=== PATIENT | female | born 1950 | race Caucasian/White ===

== ENCOUNTER 2018-05-14 15:33 | Inpatient (IN) | payer MEDICARE, MEDICAID ==
[~2018-05-14] VITALS: Ht 167.6 cm; Wt 99.3 kg
--- NOTE | 2018-05-14 15:56 | ED Dyspnea ---
General Stated Complaint: SOB Source of Information: Patient Exam Limitations: No Limitations (FARAZ BUSTILLO MD) History of Present Illness Date Seen by Provider: May 14, 2018 Time Seen by Provider: 15:40 Initial Comments The patient is a very pleasant 67-year-old female who presents for evaluation of shortness of breath. She states that she was diagnosed with a pneumonia in January 2018 and "never really got better". She does report a history of emphysema but denies being on home oxygen. Upon arrival her oxygen saturation on room air is in the mid 80s. She says that she has increasing pain with deep breaths. She reports that she has had a heart attack in the past but denies having any chest discomfort currently. She only has pain when breathing. She denies any wheezing, lower extremity edema, abdominal or back pain, nausea or vomiting, fevers or chills, dizziness recently. She is alert and oriented 4 and in moderate respiratory distress upon arrival. Severity: Moderate Modifying Factors: Improves With Activity Associated Symptoms: Cough (SUMIT SHARMA DO) Allergies and Home Medications Allergies Coded Allergies: Penicillins (Unverified Allergy, Unknown, 05/14/18) doxycycline (Unverified Allergy, Unknown, 05/14/18) levofloxacin (Unverified Allergy, Unknown, 05/14/18) tramadol (Unverified Allergy, Unknown, 05/14/18) Patient Home Medication List Home Medication List Reviewed: Yes (SUMIT SHARMA DO) Review of Systems Review of Systems Constitutional: no symptoms reported EENTM: no symptoms reported Respiratory: cough, dyspnea on exertion, short of breath Cardiovascular: no symptoms reported Gastrointestinal: no symptoms reported Genitourinary: no symptoms reported Musculoskeletal: no symptoms reported Skin: no symptoms reported Psychiatric/Neurological: No Symptoms Reported Endocrine: No Symptoms Reported Hematologic/Lymphatic: No Symptoms Reported (SUMIT SHARMA DO) All Other Systems Reviewed Negative Unless Noted: Yes (SUMIT SHARMA DO) Negative Unless Noted: Yes (FARAZ BUSTILLO MD) Past Lberxvk-Ujxvbo-Kjbqui Hx Patient Social History Recent Foreign Travel: No Contact w/Someone Who Travel: No (SUMIT SHARMA DO) Physical Exam Vital Signs Vital Signs - First Documented 05/14/18 15:41 Temp 99.0 Pulse 100 Resp 20 B/P (MAP) 150/99 (116) Pulse Ox 85 O2 Delivery Room Air O2 Flow Rate 2.00 (FARAZ BUSTILLO MD) Vital Signs Capillary Refill : (SUMIT SHARMA DO) Height, Weight, BMI Height: '" Weight: lbs. oz. kg; BMI Method: General Appearance: WD/WN, Moderate Distress HEENT: PERRL/EOMI, Pharynx Normal Neck: Full Range of Motion, Normal Inspection, Non Tender Respiratory: Chest Non Tender, Accessory Muscle Use, Respiratory Distress ( moderate), Rhonci (left base) Cardiovascular: Regular Rate, Rhythm, No Edema, No Gallop, No JVD Gastrointestinal: Normal Bowel Sounds, No Organomegaly, No Pulsatile Mass Extremity: Normal Capillary Refill, Normal Range of Motion, Non Tender Neurologic/Psychiatric: Alert, Oriented x3, No Motor/Sensory Deficits, Normal Mood/Affect Skin: Normal Color, Warm/Dry (SUMIT SHARMA DO) Gastrointestinal: Normal Bowel Sounds (FARAZ BUSTILLO MD) Focused Exam Lactate Level 05/14/18 16:00: Lactic Acid Level 1.76 (FARAZ BUSTILLO MD) Lactic Acid Level Laboratory Tests Test 05/14/18 16:00 Lactic Acid Level 1.76 MMOL/L (0.50-2.00) (FARAZ BUSTILLO MD) Progress/Results/Core Measures Results/Orders Lab Results Laboratory Tests Test 05/14/18 15:15 05/14/18 15:50 05/14/18 16:00 Range/Units D-Dimer 0.79 H 0.00-0.49 UG/ML Sodium Level 137 135-145 MMOL/L Potassium Level 4.6 3.6-5.0 MMOL/L Chloride Level 103 98-107 MMOL/L Carbon Dioxide Level 21 21-32 MMOL/L Anion Gap 13 5-14 MMOL/L Blood Urea Nitrogen 16 7-18 MG/DL Creatinine 0.79 0.60-1.30 MG/DL Estimat Glomerular Filtration Rate > 60 BUN/Creatinine Ratio 20 Glucose Level 123 H 70-105 MG/DL Calcium Level 9.8 8.5-10.1 MG/DL Corrected Calcium 9.7 8.5-10.1 MG/DL Magnesium Level 2.1 1.8-2.4 MG/DL Total Bilirubin 0.2 0.1-1.0 MG/DL Aspartate Amino Transf (AST/SGOT) 25 5-34 U/L Alanine Aminotransferase (ALT/SGPT) 12 0-55 U/L Alkaline Phosphatase 111 40-136 U/L Troponin T 8 <=10 NG/L B-Type Natriuretic Peptide 59.4 <100.0 PG/ML Total Protein 7.8 6.4-8.2 GM/DL Albumin 4.1 3.2-4.5 GM/DL White Blood Count 8.1 4.3-11.0 10^3/uL Red Blood Count 5.00 4.35-5.85 10^6/uL Hemoglobin 14.8 11.5-16.0 G/DL Hematocrit 44 35-52 % Mean Corpuscular Volume 88 80-99 FL Mean Corpuscular Hemoglobin 30 25-34 PG Mean Corpuscular Hemoglobin Concent 34 32-36 G/DL Red Cell Distribution Width 12.5 10.0-14.5 % Platelet Count 314 130-400 10^3/uL Mean Platelet Volume 9.4 7.4-10.4 FL Neutrophils (%) (Auto) 61 42-75 % Lymphocytes (%) (Auto) 24 12-44 % Monocytes (%) (Auto) 9 0-12 % Eosinophils (%) (Auto) 5 0-10 % Basophils (%) (Auto) 1 0-10 % Neutrophils # (Auto) 4.9 1.8-7.8 X 10^3 Lymphocytes # (Auto) 2.0 1.0-4.0 X 10^3 Monocytes # (Auto) 0.7 0.0-1.0 X 10^3 Eosinophils # (Auto) 0.4 H 0.0-0.3 10^3/uL Basophils # (Auto) 0.1 0.0-0.1 10^3/uL Lactic Acid Level 1.76 0.50-2.00 MMOL/L (FARAZ BUSTILLO MD) My Orders Orders - FARAZ BUSTILLO MD Chest 1 View Ap/Pa Only (05/14/18 18:57) Ct Angio Chest W (05/14/18 18:58) Ceftriaxone For Iv Use (Rocephin For I (05/14/18 19:30) Zithromax 500 Mg Iv (1x Order) (05/14/18 19:45) (FARAZ BUSTILLO MD) Medications Given in ED Current Medications Medications Dose Ordered Sig/Mahamed Route Start Time Stop Time Status Last Admin Dose Admin Albuterol/ Ipratropium 3 ml ONCE ONCE INH 05/14/18 16:30 05/14/18 16:32 DC 05/14/18 16:39 3 ML Methylprednisolone Sodium Succinate 125 mg ONCE ONCE IVP 05/14/18 16:30 05/14/18 16:32 DC 05/14/18 16:39 125 MG (FARAZ BUSTILLO MD) Vital Signs/I&O 05/14/18 05/14/18 15:41 15:41 Temp 99.0 Pulse 100 Resp 20 B/P (MAP) 150/99 (116) Pulse Ox 85 94 O2 Delivery Room Air Nasal Cannula O2 Flow Rate 2.00 (FARAZ BUSTILLO MD) Progress Progress Note : Progress Note @1800 - Pt care transferred from Dr. Sharma to Dr. Ajay Bustillo at this time. Awaiting troponin and CT angio chest to r/o PE. Pt stable. (SUMIT SHARMA DO) Initial ECG Impression Date: May 14, 2018 Initial ECG Impression Time: 15:48 Initial ECG Rate: 82 Initial ECG Rhythm: Normal Sinus Initial ECG Intervals: Normal Initial ECG Impression: Nonspecific Changes Comment Normal sinus rhythm, rate of 82, normal axis, no acute ischemic findings noted, S1Q3T3 strain pattern is noted, no STEMI, reviewed and interpreted by myself (SUMIT SHARMA DO) Transfer of Care Time: 18:00 Care transferred to: Dr. Faraz Bustillo at 6 p.m. (FARAZ BUSTILLO MD) Departure Impression Primary Impression: Pneumonia Additional Impression: COPD exacerbation Disposition: ADMITTED INPATIENT Condition: Stable Admissions Decision to Admit Reason: Admit from ER (General) (I spoke with Dr[facility] Baumann at [facility] who agreed to admit. Cultures were drawn antibiotics were started.) Decision to Admit/Date: May 14, 2018 Time/Decision to Admit Time: 19:38 (FARAZ BUSTILLO MD) Departure-Patient Inst. Referrals: AIDEN PATTERSON MD (PCP/Family) Primary Care Physician SUMIT SHARMA DO May 14, 2018 15:56 FARAZ BUSTILLO MD May 14, 2018 18:16
[2018-05-14 16:02] LABS: BASOPHILS % (AUTO) 1 % (0-10); EOSINOPHILS % (AUTO) 5 % (0-10); HEMATOCRIT 44 % (35-52); HEMOGLOBIN 14.8 G/DL (11.5-16.0); LYMPHOCYTES % (AUTO) 24 % (12-44); MEAN CORPUSCULAR HEMOGLOBIN 30 PG (25-34); MEAN CORPUSCULAR HGB CONC 34 G/DL (32-36); MEAN CORPUSCULAR VOLUME 88 FL (80-99); MEAN PLATELET VOLUME 9.4 FL (7.4-10.4); MONOCYTES % (AUTO) 9 % (0-12); NEUTROPHILS % (AUTO) 61 % (42-75); PLATELET COUNT 314 10^3/uL (130-400); RED CELL DISTRIBUTION WIDTH 12.5 % (10.0-14.5); WHITE BLOOD COUNT 8.1 10^3/uL (4.3-11.0)
[2018-05-14 16:03] LABS: BASOPHILS # (AUTO) 0.1 10^3/uL (0.0-0.1); EOSINOPHILS # (AUTO) 0.4 10^3/uL (0.0-0.3); MONOCYTES # (AUTO) 0.7 X 10^3 (0.0-1.0); NEUTROPHILS # (AUTO) 4.9 X 10^3 (1.8-7.8)
[2018-05-14] MEDS ORDERED: RT-ALBUTEROL/IPRATROPIUM 3 ML (DUONEB) VIAL INH ONE (16:30)
[2018-05-14] MEDS ORDERED: methylPREDNISolone 125 MG (Solu-MEDROL) VIAL IVP ONE (16:30)
[2018-05-14 16:34] LABS: CARBON DIOXIDE 21 MMOL/L (21-32); CHLORIDE 103 MMOL/L (98-107); POTASSIUM 4.6 MMOL/L (3.6-5.0); SODIUM 137 MMOL/L (135-145)
[2018-05-14 16:35] LABS: ALKALINE PHOSPHATASE 111 U/L (40-136); BILIRUBIN,TOTAL 0.2 MG/DL (0.1-1.0); BUN/CREATININE RATIO 20; CALCIUM 9.8 MG/DL (8.5-10.1); CREATININE SERUM 0.79 MG/DL (0.60-1.30); GFR ESTIMATED > 60; GLUCOSE 123 MG/DL (70-105); MAGNESIUM 2.1 MG/DL (1.8-2.4)
[2018-05-14 16:36] LABS: ALANINE AMINOTRANSFERASE 12 U/L (0-55); ALBUMIN 4.1 GM/DL (3.2-4.5); TOTAL PROTEIN 7.8 GM/DL (6.4-8.2)
--- NOTE | 2018-05-14 17:35 | NUR ---
Pt walked to restroom with portable O2 NC at 2L. When pt returned to , pt's O2 sat was 79%. Once pt was settled in bed, O2 sat returned to 98%.
--- NOTE | 2018-05-14 19:17 | Diagnostic Imaging Report ---
INDICATION: Shortness of air. COMPARISON: None. FINDINGS: Single frontal radiographic view of the chest was obtained and shows normal cardiac silhouette and pulmonary vasculature. Lungs show prominence of the interstitium with scattered areas of alveolar opacity within the left mid and lower and right lower lung stanford. No large effusion or pneumothorax is seen. Bony structures show no gross acute abnormalities. IMPRESSION: 1. Scattered interstitial and alveolar opacities concerning for edema or pneumonia. Clinical correlation and follow-up is recommended. Dictated by: Dictated on workstation # [id number]
--- NOTE | 2018-05-14 19:26 | Diagnostic Imaging Report ---
PROCEDURE: CT angiography of the chest with contrast. TECHNIQUE: Multiple contiguous axial images were obtained through the chest after uneventful bolus administration of intravenous contrast. 2D reconstructed CTA MIP acquisitions were also performed. INDICATION: Shortness of air. Elevated d-dimer. History of COPD. COMPARISON: None FINDINGS: Exam is nondiagnostic for evaluation of pulmonary arteries for pulmonary emboli. This is secondary to poor opacification by the contrast bolus. Thoracic aorta is normal in course and caliber. Heart size is upper limits of normal. There is no large pericardial effusion. There is advanced calcified coronary atherosclerosis, particularly involving the left coronary arteries. Multiple prominent mediastinal lymph nodes are noted. Largest is precarinal in location and measures 1 x 2 cm. Evaluation of the lung stanford demonstrates no large pleural effusion or pneumothorax on either side. There are, however, geographic areas of hyperattenuation admixed with areas of septal thickening, greatest within the bilateral lower lung stan[place], although scattered throughout. Pulmonary nodule or micronodule may be obscured. No large obvious pulmonary parenchymal mass is identified. Bony structures show no acute abnormalities. Included portions of the upper abdomen are unremarkable. IMPRESSION: 1. Nondiagnostic exam for evaluation of the pulmonary arteries for pulmonary emboli. 2. Scattered groundglass pulmonary opacities with areas of septal thickening. Findings are nonspecific, but could be on the basis of pulmonary edema, pneumonitis, or infiltrate. Followup with serial chest radiograph is recommended. 3. Multiple prominent mediastinal lymph nodes; possibly reactive. Followup is recommended. Dictated by: Dictated on workstation # [id number]
[2018-05-14] MEDS ORDERED: cefTRIAXone FOR IV USE 1,000 MG in WATER (STERILE) FOR INJECTION 10 ML IV ONE (19:30)
[2018-05-14] MEDS ORDERED: AZITHROMYCIN INJECTION 500 MG in NS (IVPB) 250 ML IV ONE (19:45)
[2018-05-14] MEDS ORDERED: CATHETER FLUSH 10 ML SYR IV PRN ×2 (20:15→20:30)
[2018-05-14] MEDS ORDERED: AZITHROMYCIN 500 MG (ZITHROMAX) VIAL ONE (20:26)
[2018-05-14] MEDS ORDERED: NS (IVPB) 250 ML ONE (20:27)
[2018-05-14] MEDS ORDERED: IOPAMIDOL 61% 100 ML (ISOVUE 300) VIAL IV ONE (20:30)
[2018-05-14] MEDS ORDERED: LEVO100T7 (21:08)
[2018-05-14] MEDS ORDERED: HYDR-3816 (21:08)
[2018-05-14 21:30] VITALS: BP 138/89
--- NOTE | 2018-05-14 21:30 | NUR ---
f pt name] admitted to room 413-1, with an admitting diagnosis of pneumonia, on 05/14/18 from ER via cart, accompanied by EMS staff. ELIGIO JUSTICE introduced to surroundings, call light, bed controls, phone, TV, temperature control, lights, meal times, smoking policy, visitor policy, side rail policy, bathrooms and showers. Patient Rights given to patient in the handbook.ELIGIO JUSTICE verbalizes understanding that [facility] is not responsible for the loss or damage to any personal effects or valuables that are kept in the patients posession during their hospitalization. Plan of care is discussed and there are no questions at this time.
[2018-05-14] MEDS: 1/2 NS IV SOLUTION 1,000 ML IV SCH (21:33)
[2018-05-14] MEDS: cefTRIAXone FOR IV USE 1,000 MG in WATER (STERILE) FOR INJECTION 10 ML IV SCH (22:32)
[2018-05-14 23:37] VITALS: BP 145/98
[2018-05-15] VITALS: BP 143/85
[2018-05-15] MEDS: RT-ALBUTEROL/IPRATROPIUM 3 ML (DUONEB) VIAL INH SCH ×6 (03:04→22:53)
[2018-05-15 04:00] VITALS: BP 144/80
[2018-05-15 05:51] LABS: BASOPHILS % (AUTO) 0 % (0-10); EOSINOPHILS % (AUTO) 0 % (0-10); HEMATOCRIT 41 % (35-52); HEMOGLOBIN 14.1 G/DL (11.5-16.0); LYMPHOCYTES # (AUTO) 1.3 X 10^3 (1.0-4.0); LYMPHOCYTES % (AUTO) 17 % (12-44); MEAN CORPUSCULAR HEMOGLOBIN 30 PG (25-34); MEAN CORPUSCULAR HGB CONC 35 G/DL (32-36); MEAN CORPUSCULAR VOLUME 86 FL (80-99); MEAN PLATELET VOLUME 9.6 FL (7.4-10.4); MONOCYTES # (AUTO) 0.2 X 10^3 (0.0-1.0); MONOCYTES % (AUTO) 3 % (0-12); NEUTROPHILS # (AUTO) 6.2 X 10^3 (1.8-7.8); NEUTROPHILS % (AUTO) 80 % (42-75); PLATELET COUNT 309 10^3/uL (130-400); RED CELL DISTRIBUTION WIDTH 12.8 % (10.0-14.5); WHITE BLOOD COUNT 7.8 10^3/uL (4.3-11.0)
[2018-05-15 06:09] LABS: ALANINE AMINOTRANSFERASE 20 U/L (0-55); ALKALINE PHOSPHATASE 96 U/L (40-136); BILIRUBIN,TOTAL 0.3 MG/DL (0.1-1.0); BUN/CREATININE RATIO 18; CALCIUM 9.9 MG/DL (8.5-10.1); CARBON DIOXIDE 17 MMOL/L (21-32); CHLORIDE 103 MMOL/L (98-107); CREATININE SERUM 0.83 MG/DL (0.60-1.30); GFR ESTIMATED > 60; GLUCOSE 156 MG/DL (70-105); POTASSIUM 3.9 MMOL/L (3.6-5.0); SODIUM 133 MMOL/L (135-145); TOTAL PROTEIN 7.1 GM/DL (6.4-8.2)
[2018-05-15] MEDS ORDERED: FLU QUADRIvalent (5+ YOA) 2018-2019 (AFLURIA) 0.5 ML IM ONE (07:45)
[2018-05-15 08:00] VITALS: BP 127/79
[2018-05-15] MEDS: 1/2 NS IV SOLUTION 1,000 ML IV SCH ×2 (08:09→17:12)
[2018-05-15] MEDS ORDERED: AZITHROMYCIN 250 MG TAB (ZITHROMAX) PO SCH (09:00)
--- NOTE | 2018-05-15 10:52 | NUR ---
THIS RN CALLED TO PT ROOM DUE TO POSSIBLE REACTION TO ANTIBIOTIC. PT FACE RED, WARM TO TOUCH. PT STATES "FACE FEEL ITCHY". NO COMPLAINTS OF INCREASED RESPIRATORY SYMPTOMS AT THIS TIME. PT RESPIRATIONS EVEN UNLABORED. DR REYNOSO ON FLOOR AT THIS TIME, THIS RN UPDATED DR ON PT STATUS. NN NEW ORDERS AT THIS TIME. THIS RN WILL CONTINUE TO MONITOR PT.
--- NOTE | 2018-05-15 10:58 | Diagnostic Imaging Report ---
PA and lateral chest at 1029. INDICATION: Pneumonia. The appearance of the chest has improved since the prior exam of 05/14/2018 as the left midlung and both lung bases do seem better aerated. There are still residual alveolar/interstitial pulmonary infiltrates bilaterally in the these areas and in the right upper lobe. The heart is stable. There is still no sign of a pleural effusion. Mediastinum is not widened. The osseous structures are intact. IMPRESSION: The appearance of the chest has improved as both lungs are better aerated. However, there is still residual pneumonia/atelectasis present bilaterally. A followup exam would be recommended for continued evaluation. Dictated by: Dictated on workstation # [id number]
[2018-05-15] MEDS ORDERED: LEVO100T7 PO (11:09)
[2018-05-15] MEDS ORDERED: HYDR-3816 PO (11:10)
[2018-05-15] MEDS ORDERED: IBUP-2185 PO (11:11)
[2018-05-15] MEDS ORDERED: CEFU500T63 PO (11:13)
--- NOTE | 2018-05-15 11:14 | NUR ---
SPOKE TO PATIENT SHE STATED WHAT SHE TOOK AND IT MATCHED EXTERNAL MEDICATION HISTORY
[2018-05-15 12:00] VITALS: BP 133/78
--- NOTE | 2018-05-15 13:24 | History & Physical-Hospitalist ---
History of Present Illness HPI/Chief Complaint this is a 67-year-old white female who was accepted in transfer from [place] last evening. The patient hashad a 2-3 month history of coughing and increased shortness of breath. She has had several CTs scans thatevidently had shown some pneumoniaand steroids have made her better periodically but she is beginning to progress to the point where her oxygen saturations have dropped and she has severe dyspnea.at the time my interview she is animated but becomes obviously short of breath while talking even on nasal cannula. She was told that she had emphysema back in 1985. She had smoked in the distant past but not in years. She does have a significant mold exposure. She says she had had a heart attack in the past but she is not on cardiac medications. Source: patient Exam Limitations: no limitations Date Seen 05/15/18 Time Seen by a Provider: 11:45 Attending Physician Angela Reynoso MD PCP Todd Bender MD Referring Physician Date of Admission May 14, 2018 at 19:51 Home Medications & Allergies Home Medications Reviewed patient Home Medication Reconciliation performed by pharmacy medication reconciliations entry level lab technician and/or nursing. Patients Allergies have been reviewed. Allergies Allergies Coded Allergies Penicillins (Unverified Allergy, Unknown, 05/14/18) doxycycline (Unverified Allergy, Unknown, 05/14/18) levofloxacin (Unverified Allergy, Unknown, 05/14/18) tramadol (Unverified Allergy, Unknown, 05/14/18) Past Uhoncts-Ikrwls-Tjsttk Hx Past Med/Social Hx: Reviewed Nursing Past Med/Soc Hx Patient Social History Marrital Status: single Employed/Student: unemployed Alcohol Use: Denies Use Recreational Drug Use: No Smoking Status: Former Smoker Type Used: Cigarettes 2nd Hand Smoke Exposure: No Physical Abuse Screen: No Sexual Abuse: No Recent Foreign Travel: No Contact w/other who traveled: No Recent Hopitalizations: No Recent Infectious Disease Expo: No Seasonal Allergies Seasonal Allergies: No Past Medical History Surgeries: Gallbladder, Tubal Ligation Respiratory: Chronic Bronchitis, Emphysema Cardiac: Heart Attack Sexually Transmitted Disease: No HIV/AIDS: No Female Reproductive Disorders: Denies Endocrine: Hypothyroidsim Are Your Blood Sugars Over 250: No History of Blood Disorders: No Adverse Reaction to Blood Ocasio: No Review of Systems Constitutional: see HPI, weakness EENTM: no symptoms reported, vision loss (right eye) Respiratory: cough, dyspnea on exertion, short of breath, wheezing Cardiovascular: no symptoms reported Gastrointestinal: no symptoms reported Genitourinary: no symptoms reported Musculoskeletal: no symptoms reported Skin: no symptoms reported Psychiatric/Neurological: No Symptoms Reported Physical Exam Physical Exam Vital Signs Vital Signs - First Documented 05/14/18 05/14/18 15:41 23:37 Temp 99.0 Pulse 100 Resp 20 B/P (MAP) 150/99 (116) Pulse Ox 85 O2 Delivery Room Air O2 Flow Rate 2.00 FiO2 28 Capillary Refill : Less Than 3 Seconds Height, Weight, BMI Height: 5'6.00" Weight: 219lbs. 0.0oz. 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 Imaging: Reviewed Imaging Films, Reviewed Imaging Report Assessment/Plan Admission Diagnosis 1. Pneumonia however patient has a normal white count and is afebrile. This may be an atypical pneumonia or more likely interstitial lung disease or secondary to molds. 2. Hypothyroidism replaced 3.Zithromax allergy 4. mediastinal lymphadenopathy 5. history of spinal stenosis Admission Status: Inpatient Order (span 2 midnights) Reason for Inpatient Admission: patient has new onset hypoxia with with interstitial infiltrates and will require pulmonary consultation and possible invasive evaluation Clinical Quality Measures DVT/VTE Risk/Contraindication: Risk Factor Score Per Nursin RFS Level Per Nursing on Admit: 4+=Very High ANGELA REYNOSO MD May 15, 2018 13:24
[2018-05-15] MEDS: HYDROcodone/APAP 7.5 MG/325 MG (LORTAB, LORCET PLUS) TABLET PO SCH ×2 (13:48→21:54)
[2018-05-15 15:56] VITALS: BP 136/87
[2018-05-15] MEDS: methylPREDNISolone 125 MG (Solu-MEDROL) VIAL IVP SCH ×2 (17:09→23:38)
[2018-05-15] MEDS: IBUPROFEN TABLET 200 MG TAB PO PRN (19:39)
[2018-05-15] MEDS: cefTRIAXone FOR IV USE 1,000 MG in WATER (STERILE) FOR INJECTION 10 ML IV SCH (20:06)
[2018-05-15 20:33] VITALS: BP 144/86
[2018-05-16] VITALS (7 sets, daily range): BP systolic 109–159; BP diastolic 52–91
[2018-05-16] MEDS: RT-ALBUTEROL/IPRATROPIUM 3 ML (DUONEB) VIAL INH SCH (01:24)
[2018-05-16] MEDS: 1/2 NS IV SOLUTION 1,000 ML IV SCH ×2 (01:59→12:21)
[2018-05-16] MEDS ORDERED: guaiFENesin (MUCINEX) 600 MG TAB PO ONE (04:44)
[2018-05-16] MEDS: HYDROcodone/APAP 7.5 MG/325 MG (LORTAB, LORCET PLUS) TABLET PO SCH ×3 (04:50→20:58)
[2018-05-16] MEDS: LORazepam 0.5 MG (ATIVAN) TABLET PO PRN ×2 (04:50→10:50)
[2018-05-16] MEDS: guaiFENesin (MUCINEX) 600 MG TAB PO SCH ×3 (04:51→20:58)
[2018-05-16] MEDS: methylPREDNISolone 125 MG (Solu-MEDROL) VIAL IVP SCH ×4 (06:32→23:46)
[2018-05-16] MEDS: LEVOTHYROXINE 100 MCG (LEVOTHROID) TAB PO SCH (06:32)
[2018-05-16] MEDS: IBUPROFEN TABLET 200 MG TAB PO PRN (08:17)
[2018-05-16] MEDS: RT-LEVALBUTEROL (XOPENEX) 1.25 MG/3 ML NEB NON-FORMULARY INH SCH ×5 (09:31→23:21)
--- NOTE | 2018-05-16 09:57 | Progress Note-Hospitalist ---
Subjective HPI/CC On Admission Date Seen by Provider: May 16, 2018 Time Seen by Provider: 09:15 this is a 67-year-old white female who was accepted in transfer from [place] last evening. The patient hashad a 2-3 month history of coughing and increased shortness of breath. She has had several CTs scans thatevidently had shown some pneumoniaand steroids have made her better periodically but she is beginning to progress to the point where her oxygen saturations have dropped and she has severe dyspnea.at the time my interview she is animated but becomes obviously short of breath while talking even on nasal cannula. She was told that she had emphysema back in 1985. She had smoked in the distant past but not in years. She does have a significant mold exposure. She says she had had a heart attack in the past but she is not on cardiac medications. Subjective/Events-last exam Patient had an episode last evening where she became acutely short of breath with coughing with dropping her oxygen saturations. Nursing staff called and asked for something for anxiety which did help. The patient notes that talking with the nurse helped the most in terms of being able to slow down her breathing. She continues to be very dyspneic with just talking. She has been afebrile otherwise. 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 Imaging: Reviewed Imaging Films, Reviewed Imaging Report Assessment/Plan Assessment and Plan Assess & Plan/Chief Complaint 1. Atypical pneumonia-the patient remains afebrile with a normal white count 2. Hypoxia with undefined lung disease-with groundglass appearance on CT 3. Spinal stenosis with chronic back pain she asked to be restarted on her hydrocodone 4. Mediastinal lymphadenopathy of uncertain etiology Day number 3 steroids, and Rocephin. Fungal antibodies pending. Appreciate Dr. Van's help Clinical Quality Measures DVT/VTE Risk/Contraindication: Risk Factor Score Per Nursin RFS Level Per Nursing on Admit: 4+=Very High SHILOH REYNOSO MD May 16, 2018 09:57
--- NOTE | 2018-05-16 12:45 | Pulmonary Consultation ---
History of Present Illness History of Present Illness Date of Consultation 05/16/18 12:40 Time Seen by Provider: 06:00 Date of Admission History of Present Illness 67yo with hx of CAD, and COPD presented as direct admit from [place] secondary to worsening cough, and SOB over the last 2-3 mo. She does not have home oxygen however she is requiring oxygen now. CT shows extensive interstitial infiltrates. She has been dx with COPD in the past. She does not have an extensive tobacco hx. I am consulted for pulmonary management. Allergies and Home Medications Allergies Coded Allergies: Penicillins (Unverified Allergy, Unknown, 05/14/18) doxycycline (Unverified Allergy, Unknown, 05/14/18) levofloxacin (Unverified Allergy, Unknown, 05/14/18) tramadol (Unverified Allergy, Unknown, 05/14/18) Home Medications Cefuroxime Axetil 500 Mg Tablet, 500 MG PO BID, (Reported) 10 DAY SUPPLY FILLED 05/07/18 Hydrocodone/Acetaminophen 1 Each Tablet, 1 TAB PO Q8H, (Reported) Ibuprofen 200 Mg Capsule, 200 MG PO Q8H PRN for PAIN-MILD, (Reported) Levothyroxine Sodium 100 Mcg Tablet, 100 MCG PO DAILY, (Reported) Past Sdkghca-Qsstpf-Lraahu Hx Past Med/Social Hx: Reviewed Nursing Past Med/Soc Hx Patient Social History Alcohol Use: Denies Use Recreational Drug Use: No Smoking Status: Former Smoker Type Used: Cigarettes 2nd Hand Smoke Exposure: No Recent Foreign Travel: No Contact w/Someone Who Travel: No Recent Infectious Disease Expo: No Recent Hopitalizations: No Physical Abuse: No Sexual Abuse: No Seasonal Allergies Seasonal Allergies: No Past Medical History Surgeries: Yes (teeth) Gallbladder, Tubal Ligation Respiratory: Yes Emphysema Cardiac: No (Mitral Valve Prolapse) Heart Attack Neurological: No Female Reproductive Disorders: Denies Sexually Transmitted Disease: No HIV/AIDS: No Genitourinary: No Gastrointestinal: No Musculoskeletal: Yes (degenerative bone disease) Endocrine: Yes Hypothyroidsim Are Your Blood Sugars Over 250: No HEENT: No Cancer: No Psychosocial: No Integumentary: No Blood Disorders: No Adverse Reaction/Blood Tranf: No Review of Systems Time Seen by Provider: 12:50 Constitutional: Fever, Chills, Sweats, Weakness, Malaise Sepsis Event Evaluation Height, Weight, BMI Height: 5'6.00" Weight: 219lbs. 0.0oz. 99.292467yr; 35.4 BMI Method:Stated Exam Exam Vital Signs Date Time Temp Pulse Resp B/P (MAP) Pulse Ox O2 Delivery O2 Flow Rate FiO2 05/16/18 09:32 96 Nasal Cannula 2.00 05/16/18 08:00 96.7 87 18 151/91 (111) 96 Nasal Cannula 3.00 05/16/18 06:58 93 05/16/18 04:20 98.5 85 18 157/58 (91) 95 Nasal Cannula 3.00 05/16/18 01:24 96 Nasal Cannula 2.00 05/16/18 01:00 104 05/16/18 00:00 99.1 83 19 109/66 (80) 95 Nasal Cannula 3.00 05/15/18 22:53 97 Nasal Cannula 2.00 05/15/18 20:33 98.7 97 28 144/86 (105) 96 Nasal Cannula 3.00 05/15/18 19:40 Nasal Cannula 2.00 05/15/18 19:14 98 Nasal Cannula 2.00 05/15/18 19:00 87 05/15/18 15:56 98.8 94 26 136/87 (103) 97 Nasal Cannula 2.00 05/15/18 14:37 98 Nasal Cannula 2.00 05/15/18 13:09 96 I & O 05/16/18 07:00 Intake Total 4740 ml Balance 4740 ml Height & Weight Height: 5'6.00" Weight: 219lbs. 0.0oz. 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) Neck: Full Range of Motion, Non Tender, Supple Respiratory: Chest Non Tender, No Respiratory Distress, Crackles, Other ( Dyspneic with talking) Cardiovascular: Regular Rate, Rhythm, No Gallop Capillary Refill: Less Than 3 Seconds Extremity: Normal Range of Motion, Non Tender, No Calf Tenderness Neurologic/Psychiatric: Alert, Oriented x3, Normal Mood/Affect Skin: Normal Color, Cool Results Lab Laboratory Tests 05/14/18 15:15 05/14/18 15:50 05/15/18 05:34 Assessment/Plan Assessment/Plan Interstitial pneumonia -Aspergillus abx pending, DILSHAD are pending -Check urine strep and legionella Ag -Check respiratory viral panel -CXR shows improvement. -Continue Rocephin and will continue to follow CXR. -Will do bronchoscopy if CXR does not continue to improve. -borjas culture including MRSA nasal swab -Continue solumedrol Mediastinal lymphadenopathy - probably reactive -Continue to monitor COPD hx -Will continue to follow as out patient -Out patient PFT -Will need repeat CT scan in 6-8wks after discharge Metabolic acidosis -Monitor -LA was normal Hyponatremia -D/C 1/2NS and start Normal saline at 75cc/hr ROSHNI SIDDIQI DO May 16, 2018 12:45
[2018-05-16] MEDS: NS IV 1000 ML 1,000 ML IV SCH (13:23)
[2018-05-16] MEDS: cefTRIAXone FOR IV USE 1,000 MG in WATER (STERILE) FOR INJECTION 10 ML IV SCH (20:59)
[2018-05-17] MEDS: RT-LEVALBUTEROL (XOPENEX) 1.25 MG/3 ML NEB NON-FORMULARY INH SCH ×4 (02:01→20:11)
[2018-05-17] MEDS: NS IV 1000 ML 1,000 ML IV SCH (02:58)
[2018-05-17 03:45] VITALS: BP 148/74
[2018-05-17] MEDS: IBUPROFEN TABLET 200 MG TAB PO PRN ×2 (04:00→11:25)
[2018-05-17] MEDS: LEVOTHYROXINE 100 MCG (LEVOTHROID) TAB PO SCH (05:43)
[2018-05-17] MEDS: HYDROcodone/APAP 7.5 MG/325 MG (LORTAB, LORCET PLUS) TABLET PO SCH ×3 (05:43→20:40)
[2018-05-17] MEDS: methylPREDNISolone 125 MG (Solu-MEDROL) VIAL IVP SCH ×4 (05:43→23:40)
[2018-05-17 05:55] LABS: BASOPHILS % (AUTO) 0 % (0-10); EOSINOPHILS % (AUTO) 0 % (0-10); HEMATOCRIT 37 % (35-52); HEMOGLOBIN 12.3 G/DL (11.5-16.0); LYMPHOCYTES % (AUTO) 10 % (12-44); MEAN CORPUSCULAR HEMOGLOBIN 30 PG (25-34); MEAN CORPUSCULAR HGB CONC 33 G/DL (32-36); MEAN CORPUSCULAR VOLUME 89 FL (80-99); MEAN PLATELET VOLUME 9.8 FL (7.4-10.4); MONOCYTES # (AUTO) 0.7 X 10^3 (0.0-1.0); MONOCYTES % (AUTO) 7 % (0-12); NEUTROPHILS # (AUTO) 9.1 X 10^3 (1.8-7.8); NEUTROPHILS % (AUTO) 84 % (42-75); PLATELET COUNT 301 10^3/uL (130-400); RED CELL DISTRIBUTION WIDTH 13.1 % (10.0-14.5); WHITE BLOOD COUNT 10.8 10^3/uL (4.3-11.0)
[2018-05-17 06:14] LABS: ALANINE AMINOTRANSFERASE 19 U/L (0-55); ALBUMIN 3.4 GM/DL (3.2-4.5); ALKALINE PHOSPHATASE 78 U/L (40-136); BILIRUBIN,TOTAL 0.2 MG/DL (0.1-1.0); BUN/CREATININE RATIO 23; CALCIUM 8.9 MG/DL (8.5-10.1); CARBON DIOXIDE 20 MMOL/L (21-32); CHLORIDE 108 MMOL/L (98-107); GFR ESTIMATED > 60; GLUCOSE 125 MG/DL (70-105); POTASSIUM 4.1 MMOL/L (3.6-5.0); SODIUM 137 MMOL/L (135-145); TOTAL PROTEIN 6.1 GM/DL (6.4-8.2)
[2018-05-17 07:21] VITALS: BP 148/74
[2018-05-17] MEDS ORDERED: RT-LEVALBUTEROL (XOPENEX) 1.25 MG/3 ML NEB NON-FORMULARY INH PRN (07:45)
[2018-05-17 08:00] VITALS: BP 146/73
[2018-05-17] MEDS: guaiFENesin (MUCINEX) 600 MG TAB PO SCH ×2 (08:23→20:39)
--- NOTE | 2018-05-17 10:30 | Progress Note-Hospitalist ---
Subjective HPI/CC On Admission Date Seen by Provider: May 17, 2018 Time Seen by Provider: 10:29 this is a 67-year-old white female who was accepted in transfer from [place] last evening. The patient hashad a 2-3 month history of coughing and increased shortness of breath. She has had several CTs scans thatevidently had shown some pneumoniaand steroids have made her better periodically but she is beginning to progress to the point where her oxygen saturations have dropped and she has severe dyspnea.at the time my interview she is animated but becomes obviously short of breath while talking even on nasal cannula. She was told that she had emphysema back in 1985. She had smoked in the distant past but not in years. She does have a significant mold exposure. She says she had had a heart attack in the past but she is not on cardiac medications. Subjective/Events-last exam Pt reports still feeling very short of breath. States she has been unable to walk around her house even since 05/06. Describes an episode of on 05/06 that she believes ot have been a heart attack. She walked out of the [facility] and developed chest pain across her chest, jaw pain, shortness of breath, became clammy and then vomited. She states she didn't seek care at the time because the hospital and ER in [facility] were closed. She has a history of a heart attack but has not had follow up care with Dr Carty in years. 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 Imaging: Reviewed Imaging Films, Reviewed Imaging Report Diagnosis/Problems Diagnosis/Problems (1) COPD exacerbation Status: Acute Assessment & Plan: Pulm consulted, appreciate recs Continue on steroids Xopenex ordered (2) Pneumonia Status: Acute Assessment & Plan: Continue Rocephin Fungal cultures pending given mold exposure Pulm consulted appreciate recs Qualifiers: Pneumonia type: due to unspecified organism Laterality: bilateral Lung location: unspecified part of lung Qualified Codes: J18.9 - Pneumonia, unspecified organism (3) CAD (coronary artery disease) Assessment & Plan: Describes event concerning for angina on 05/06 Will get echo Cardiology consulted, appreciate recs BNP normal on arrival as well as troponin Qualifiers: Coronary Disease-Associated Artery/Lesion type: [place] artery [place] vs. transplanted heart: [place] heart Associated angina: with stable angina Qualified Codes: I25.118 - Atherosclerotic heart disease of [place] coronary artery with other forms of angina pectoris Clinical Quality Measures DVT/VTE Risk/Contraindication: Risk Factor Score Per Nursin RFS Level Per Nursing on Admit: 4+=Very High LYNN WALSH MD May 17, 2018 10:30
[2018-05-17 12:00] VITALS: BP 169/84
--- NOTE | 2018-05-17 12:05 | Consultation-Cardiology ---
HPI-Cardiology Cardiology Consultation: Date of Consultation 05/17/18 Date of Admission Attending Physician Angela Bauamnn MD Admitting Physician Todd Bender MD Consulting Physician Shadia RAYMOND MD HPI: Time Seen by a Provider: 14:45 Chief Complaint: Shortness of breath This is a 67-year-old lady who was transferred from [place] couple of days ago due to increased shortness of breath and worsening coughing. According to the patient she is had previous history of mitral valve prolapse, palpitations, possible [place] with coronary angiography done in [place], however no stents were placed. She has been significantly short of breath in the last few weeks. She is not an active smoker. She denies diabetes, hypertension. She does not know if she has high cholesterol. However she does have significant premature family history of CAD and sudden cardiac . According to her she was being treated for pneumonia recently. She also has history of possible panic attack. During some of these episodes of shortness of breath the patient was also near syncopal. She also complains of frequent palpitations. Review of Systems-Cardiology Review of Systems Constitutional: As described under HPI; No As described under HPI, No no symptoms reported, No chills, No fever, No lightheadedness Eyes: No As described under HPI, No no symptoms reported, No blindness, No blurred vision, No contact lenses, No drainage, No decreased acuity, No foreign body sensation, No pain, No vision change Ears/Nose/Throat: No As described under HPI, No no symptoms reported, No chronic hearing loss, No ear discharge, No ear pain, No nasal drainage, No ulcerations Respiratory: No no symptoms reported; As described under HPI; No As described under HPI, No cough, No orthopnea; shortness of breath; No SOB with excertion Cardiovascular: No no symptoms reported; As described under HPI; No As described under HPI; chest pain; No edema, No irregular heart rate, No lightheadedness; palpitations, syncope Gastrointestinal: No no symptoms reported, No As described under HPI, No abdomen distended, No abdominal pain, No blood streaked bowels, No constipation , No diarrhea, No nausea, No vomiting, No stool coloration changes Genitourinary: No As described under HPI, No burning, No dysuria, No discharge , No frequency, No flank pain, No hematuria, No urgency : Yes : No Skin: No rash, No skin related problems, No ulcerations Psychiatric/Neurological: No anxiety, No depression, No seizure, No focal weakness, No syncope Hematologic: No bleeding abnormalities All Other Systems Reviewed Negative Unless Noted: Yes [id number] Hx Patient Social History Marrital Status: single Employed/Student: unemployed Alcohol Use: Denies Use Recreational Drug Use: No Smoking Status: Former Smoker Type Used: Cigarettes 2nd Hand Smoke Exposure: No Recent Foreign Travel: No Recent Infectious Disease Expo: No Hospitalization with Isolation: Denies Physical Abuse Screen: No Sexual Abuse: No Past Medical History PMH As described under Assessment. Allergies and Home Medications Allergies Coded Allergies: Penicillins (Unverified Allergy, Unknown, 05/14/18) doxycycline (Unverified Allergy, Unknown, 05/14/18) levofloxacin (Unverified Allergy, Unknown, 05/14/18) tramadol (Unverified Allergy, Unknown, 05/14/18) Home Medications Cefuroxime Axetil 500 Mg Tablet, 500 MG PO BID, (Reported) 10 DAY SUPPLY FILLED 05/07/18 Hydrocodone/Acetaminophen 1 Each Tablet, 1 TAB PO Q8H, (Reported) Ibuprofen 200 Mg Capsule, 200 MG PO Q8H PRN for PAIN-MILD, (Reported) Levothyroxine Sodium 100 Mcg Tablet, 100 MCG PO DAILY, (Reported) Patient Home Medication List Home Medication List Reviewed: Yes Physical Exam-Cardiology Physical Exam Vital Signs/I&O 05/17/18 05/17/18 05/17/18 05/17/18 03:45 07:00 07:21 07:21 Temp 98.2 Pulse 104 94 90 Resp 20 B/P (MAP) 148/74 (98) Pulse Ox 98 95 95 O2 Delivery Nasal Cannula Nasal Cannula O2 Flow Rate 2.00 1.00 2.00 05/17/18 05/17/18 05/17/18 05/17/18 08:00 08:00 12:00 12:56 Temp 98.1 98.1 Pulse 94 88 108 Resp 18 20 B/P (MAP) 146/73 (97) 169/84 (112) Pulse Ox 92 94 O2 Delivery Nasal Cannula Nasal Cannula Nasal Cannula O2 Flow Rate 2.00 2.00 2.00 05/17/18 00:00 Intake Total 2830 ml Balance 2830 ml Capillary Refill : Less Than 3 Seconds Constitutional: appears stated age, AAO x 3; No apparent distress; well- developed, well-nourished HEENT: PERRL; No normal ENT inspection, No TMs normal, No pharynx normal, No scleral icterus (R), No scleral icterus (L), No pale conjunctivae (R), No pale conjunctivae (L), No photophobia, No TM abnormal (R), No TM abnormal (L), No pharyngeal erythema, No tonsillar exudate, No other, No discharge, No EOMI; hearing is well preserved; No hard of hearing; oral hygience is good; No ulceration, No xanthelasmas are seen Neck: No non-tender, No full range of motion, No supple, No normal inspection, No carotid bruit, No limited range of motion, No lymphadenopathy (R), No lymphadenopathy (L), No tender lateral, No tender midline, No thyromegaly, No other; carotid pulses are 2 + bilaterally; No with good upstrokes Respiratory: No accessory muscle use, No respiratory distress, No chest tender , No chest expansion is symmetric; chest is bilaterally symmetric; No lungs clear to percussion; lungs clear to auscultation; No crackles, No rhonchi, No rales, No stridor, No wheezing, No pleural rub, No other Cardiovascular: regular rate-rhythm; No irregularly irregular, No extra beats, No parasternal heave is noted, No JVD, No edema, No bradycardia, No tachycardia , No point of maximal impulse, No cardiac thrills are palpable; S1 and S2; No gallop/S3, No gallop/S4, No diastolic murmur; systolic murmur; No friction rub, No click, No other Gastrointestinal: No tender, No soft, No round, No distended, No pulsatile mass , No organomegaly, No guarding, No rebound, No tenderness, No hernia, No mass, No audible bowel sounds, No abnormal bowel sounds, No abdominal bruits, No spleenomegaly, No other Rectal: deferred Extremities: No normal range of motion, No non-tender, No normal inspection, No pedal edema, No calf tenderness, No normal capillary refill, No pelvis stable , No calf tenderness, No inflammation, No pedal edema, No slow capillary refill , No swelling, No other, No abrasion, No clubbing, No cyanosis, No ecchymosis, No laceration, No no lower extremity edema bilateral, No significant edema, No tenderness, No wound Neurologic/Psychiatric: no motor/sensory deficits, alert, normal mood/affect, oriented x 3, power is 5/5 both on sides Skin: No normal color, No warm/dry, No cyanosis, No cool, No diaphoresis, No damp, No ecchymosis, No jaundice, No mottled, No pallor, No rash, No tattoos/ piercings, No ulcerations, No rash on exposed areas, No ulcerations on exposed areas, No other Data Review Labs Laboratory Tests 05/16/18 16:46: Glucometer 137H 05/17/18 05:40: White Blood Count 10.8, Red Blood Count 4.16L, Hemoglobin 12.3, Hematocrit 37, Mean Corpuscular Volume 89, Mean Corpuscular Hemoglobin 30, Mean Corpuscular Hemoglobin Concent 33, Red Cell Distribution Width 13.1, Platelet Count 301, Mean Platelet Volume 9.8, Neutrophils (%) (Auto) 84H, Lymphocytes (%) (Auto) 10L , Monocytes (%) (Auto) 7, Eosinophils (%) (Auto) 0, Basophils (%) (Auto) 0, Neutrophils # (Auto) 9.1H, Lymphocytes # (Auto) 1.0, Monocytes # (Auto) 0.7, Eosinophils # (Auto) 0.0, Basophils # (Auto) 0.0, Sodium Level 137, Potassium Level 4.1, Chloride Level 108H, Carbon Dioxide Level 20L, Anion Gap 9, Blood Urea Nitrogen 16, Creatinine 0.70, Estimat Glomerular Filtration Rate > 60, BUN/ Creatinine Ratio 23, Glucose Level 125H, Calcium Level 8.9, Corrected Calcium 9.4, Total Bilirubin 0.2, Aspartate Amino Transf (AST/SGOT) 19, Alanine Aminotransferase (ALT/SGPT) 19, Alkaline Phosphatase 78, Total Protein 6.1L, Albumin 3.4 Microbiology 05/14/18 Blood Culture - Preliminary, Resulted No growth 05/16/18 Influenza Types A,B Antigen (SIGRID) - Final, Complete ECG Impression ECG Initial ECG Rhythm: Normal Sinus Initial ECG Impression: Normal A/P-Cardiology Assessment/Admission Diagnosis Shortness of breath, Chest pain, Syncope, Palpitations, Plan Shortness of breath, no congestive heart failure on examination. She is euvolemic. Normal BNP. Echocardiogram on 05/17/2018 shows normal LV function. No significant valve disease. Chest pain, negative EKG, negative troponin. She has this vague history of [place] with coronary angiography but no stents were placed. We will try to get old records. She does have significant family history of premature CAD and sudden cardiac . I will recommend a nuclear stress test tomorrow. Syncope, likely associated with panic attacks. Will likely require an event monitor on discharge. Palpitation, continue telemetry. Event monitor on discharge. Thank you for your consultation. Please call me if you have any questions. Richy Raymond MD, FACP, FACC, FSCAI, FHRS, CCDS Interventional Cardiology Cardiac Electrophysiology Vascular Medicine and Endovascular Interventions Clinical Quality Measures DVT/VTE Risk/Contraindication: Risk Factor Score Per Nursin RFS Level Per Nursing on Admit: 4+=Very High Shadia RAYMOND MD May 17, 2018 12:05 pm
--- NOTE | 2018-05-17 14:39 | Diagnostic Imaging Report ---
INDICATION: Pneumonia. Comparison made with prior examination from 05/15/2018. FINDINGS: Heart size is normal. There is moderate central pulmonary venous congestion. There are patchy bibasilar infiltrates right greater than left. There is no pleural effusion or pneumothorax. Mediastinum is unremarkable. IMPRESSION: Patchy bibasilar infiltrates right greater than left. Moderate central pulmonary venous congestion. Dictated by: Dictated on workstation # [id number]
--- NOTE | 2018-05-17 15:00 | Pulmonary Progress Note ---
Subjective Time Seen by a Provider: 14:59 Subjective/Events-last exam No complications noted. Sepsis Event Evaluation Height, Weight, BMI Height: 5'6.00" Weight: 219lbs. 0.0oz. 99.965872bi; 35.4 BMI Method:Stated Focused Exam Lactate Level 05/14/18 16:00: Lactic Acid Level 1.76 Exam Exam Vital Signs Date Time Temp Pulse Resp B/P (MAP) Pulse Ox O2 Delivery O2 Flow Rate FiO2 05/17/18 12:56 108 05/17/18 12:00 98.1 88 20 169/84 (112) 94 Nasal Cannula 2.00 05/17/18 08:00 Nasal Cannula 2.00 05/17/18 08:00 98.1 94 18 146/73 (97) 92 Nasal Cannula 2.00 05/17/18 07:21 90 95 05/17/18 07:21 95 Nasal Cannula 1.00 05/17/18 07:00 94 05/17/18 03:45 98.2 104 20 148/74 (98) 98 Nasal Cannula 2.00 2.00 05/17/18 02:01 95 Nasal Cannula 2.00 05/17/18 01:00 91 05/16/18 23:29 98.2 94 18 159/74 (102) 95 Nasal Cannula 3.00 05/16/18 20:22 98.3 86 20 143/72 (95) 96 Nasal Cannula 3.00 05/16/18 20:00 Nasal Cannula 2.00 05/16/18 19:00 94 05/16/18 16:43 98.6 83 18 138/76 (96) 97 Nasal Cannula 3.00 I & O 05/17/18 07:00 Intake Total 3430 ml Balance 3430 ml Height & Weight Height: 5'6.00" Weight: 219lbs. 0.0oz. 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 -Continue Rocephin and will continue to follow CXR. -Will do bronchoscopy if CXR does not continue to improve. -borjas culture including MRSA nasal swab -Continue solumedrol Mediastinal lymphadenopathy - probably reactive -Continue to monitor COPD hx -Will continue to follow as out patient -Out patient PFT -Will need repeat CT scan in 6-8wks after discharge Metabolic acidosis -Monitor -LA was normal ROSHNI SIDDIQI DO May 17, 2018 15:00
[2018-05-17 16:35] VITALS: BP 165/79
[2018-05-17] MEDS: cefTRIAXone FOR IV USE 1,000 MG in WATER (STERILE) FOR INJECTION 10 ML IV SCH (19:22)
[2018-05-17 20:40] VITALS: BP 122/80
[2018-05-18] VITALS (7 sets, daily range): BP systolic 155–190; BP diastolic 84–114
[2018-05-18] MEDS ORDERED: REGADENOSON 0.4 MG/5 ML SYR (LEXISCAN) IV ONE ×3 (05:00→09:00)
[2018-05-18] MEDS: HYDROcodone/APAP 7.5 MG/325 MG (LORTAB, LORCET PLUS) TABLET PO SCH ×3 (05:43→20:52)
[2018-05-18] MEDS: LEVOTHYROXINE 100 MCG (LEVOTHROID) TAB PO SCH (05:44)
[2018-05-18] MEDS: methylPREDNISolone 125 MG (Solu-MEDROL) VIAL IVP SCH (05:44)
--- NOTE | 2018-05-18 06:39 | Pulmonary Progress Note ---
Subjective Time Seen by a Provider: 06:42 Subjective/Events-last exam Pt has SOB but improved. Sepsis Event Evaluation Height, Weight, BMI Height: 5'6.00" Weight: 219lbs. 0.0oz. 99.867899rm; 35.4 BMI Method:Stated Exam Exam Vital Signs Date Time Temp Pulse Resp B/P (MAP) Pulse Ox O2 Delivery O2 Flow Rate FiO2 05/18/18 04:08 98.0 99 20 157/92 (113) 95 Room Air 05/18/18 01:00 110 05/18/18 00:00 98.2 96 18 155/84 (107) 96 Room Air 05/17/18 20:40 98.3 80 18 122/80 (94) 96 Room Air 05/17/18 20:13 97 Room Air 05/17/18 19:25 Room Air 05/17/18 19:00 113 05/17/18 16:35 97.9 83 20 165/79 (107) 94 Nasal Cannula 2.00 05/17/18 15:57 94 Room Air 05/17/18 12:56 108 05/17/18 12:00 98.1 88 20 169/84 (112) 94 Nasal Cannula 2.00 05/17/18 08:00 Nasal Cannula 2.00 05/17/18 08:00 98.1 94 18 146/73 (97) 92 Nasal Cannula 2.00 05/17/18 07:21 90 95 05/17/18 07:21 95 Nasal Cannula 1.00 05/17/18 07:00 94 I & O 05/18/18 07:00 Intake Total 1700 ml Balance 1700 ml Height & Weight Height: 5'6.00" Weight: 219lbs. 0.0oz. 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 - respiratory viral panel pending -CXR shows improvement. -Continue Rocephin and will continue to follow CXR. -Pt will probably need out patient bronchoscopy with EBUS if CT chest does not improve. -borjas culture and influenza is negative -MRSA nasal swab- is negative -Change solumedrol to prednisone taper Mediastinal lymphadenopathy - probably reactive -Continue to monitor -Repeat CT scan as out patient pt will probably need bronchoscopy with EBUS. COPD hx -Will continue to follow as out patient -Out patient PFT -Will need repeat CT scan in 6-8wks after discharge Metabolic acidosis -Monitor -LA was normal PT is ok from pulmonary standpoint for discharge. I will f/u with her in 3wks. ROSHNI SIDDIQI DO May 18, 2018 06:38
[2018-05-18] MEDS: RT-LEVALBUTEROL (XOPENEX) 1.25 MG/3 ML NEB NON-FORMULARY INH SCH ×3 (07:11→23:10)
--- NOTE | 2018-05-18 09:20 | Cardiology Progress Note ---
Cardiology SOAP Progress Note Subjective: No cardiac complaints. Objective: I&O/Vital Signs 05/18/18 05/18/18 05/18/18 05/18/18 00:00 01:00 04:08 07:02 Temp 98.2 98.0 Pulse 96 110 99 83 Resp 18 20 B/P (MAP) 155/84 (107) 157/92 (113) Pulse Ox 96 95 O2 Delivery Room Air Room Air 05/18/18 05/18/18 08:40 08:43 Pulse 87 112 B/P (MAP) 190/114 (139) 160/88 (112) Pulse Ox 97 98 05/18/18 00:00 Intake Total 1700 ml Balance 1700 ml Weight (Pounds): 219 Weight (Ounces): 0.0 Weight (Calculated Kilograms): 99.861507 Constitutional: appears stated age, AAO x 3; No apparent distress; well- developed, well-nourished Respiratory: No accessory muscle use, No respiratory distress, No chest tender , No chest expansion is symmetric; chest is bilaterally symmetric; No lungs clear to percussion; lungs clear to auscultation; No crackles, No rhonchi, No rales, No stridor, No wheezing, No pleural rub, No other Cardiovascular: regular rate-rhythm; No irregularly irregular, No extra beats, No parasternal heave is noted, No JVD, No edema, No bradycardia, No tachycardia , No point of maximal impulse, No cardiac thrills are palpable; S1 and S2; No gallop/S3, No gallop/S4, No diastolic murmur; systolic murmur; No friction rub, No click, No other Gastrointestional: No tender, No soft, No round, No distended, No pulsatile mass, No organomegaly, No guarding, No rebound, No tenderness, No hernia, No mass, No audible bowel sounds, No abnormal bowel sounds, No abdominal bruits, No spleenomegaly, No other Extremities: No normal range of motion, No non-tender, No normal inspection, No pedal edema, No calf tenderness, No normal capillary refill, No pelvis stable , No calf tenderness, No inflammation, No pedal edema, No slow capillary refill , No swelling, No other, No abrasion, No clubbing, No cyanosis, No ecchymosis, No laceration, No no lower extremity edema bilateral, No significant edema, No tenderness, No wound Neurologic/Psychiatric: no motor/sensory deficits, alert, normal mood/affect, oriented x 3, power is 5/5 both on sides Skin: No normal color, No warm/dry, No cyanosis, No cool, No diaphoresis, No damp, No ecchymosis, No jaundice, No mottled, No pallor, No rash, No tattoos/ piercings, No ulcerations, No rash on exposed areas, No ulcerations on exposed areas, No other Results/Procedures: Labs Laboratory Tests 05/17/18 18:55: Glucometer 143H 05/18/18 06:47: Glucometer 119H Microbiology 05/14/18 Blood Culture - Preliminary, Resulted No growth 05/16/18 Influenza Types A,B Antigen (SIGRID) - Final, Complete A/P: Assessment/Dx: Shortness of breath, Chest pain, Syncope, Palpitations, Plan: Shortness of breath, no congestive heart failure on examination. She is euvolemic. Normal BNP. Echocardiogram on 05/17/2018 shows normal LV function. No significant valve disease. Chest pain, negative EKG, negative troponin. She has this vague history of [place] with coronary angiography but no stents were placed. We will try to get old records. She does have significant family history of premature CAD and sudden cardiac . Nuclear stress test today. Syncope, likely associated with panic attacks. Will likely require an event monitor on discharge. Palpitation, continue telemetry. Event monitor on discharge. Thank you for your consultation. Please call me if you have any questions. Richy Raymond MD, FACP, FACC, FSCAI, FHRS, CCDS Interventional Cardiology Cardiac Electrophysiology Vascular Medicine and Endovascular Interventions Shadia RAYMOND MD May 18, 2018 9:20 am
[2018-05-18] MEDS: CEFDINIR 300 MG (OMNICEF) CAP PO SCH ×2 (10:41→20:51)
[2018-05-18] MEDS: guaiFENesin (MUCINEX) 600 MG TAB PO SCH ×2 (10:41→20:51)
[2018-05-18] MEDS: IBUPROFEN TABLET 200 MG TAB PO PRN (10:41)
[2018-05-18] MEDS: predniSONE 10 MG TAB PO SCH (11:08)
--- NOTE | 2018-05-18 12:55 | NUR ---
PT HAVING C/O OF SHORTNESS OF BREATH AND BURNING CHEST PAIN. VITALS TAKEN: BP 164/103, HR 104, O2 94%. PT GIVEN 0.5 MG OF ATIVAN AND TOOK 2 TUMS. PT HAS HX OF ANXIETY AND ACID REFLUX. WILL CONTINUE TO MONITOR.
[2018-05-18] MEDS: LORazepam 0.5 MG (ATIVAN) TABLET PO PRN (13:01)
--- NOTE | 2018-05-18 13:12 | Cardiology Stress Test Report ---
Stress Test Report Type of NM Stress Test: Test Type: LEXISCAN 0.4MG/5ML Date of Procedure/Referring: Date of Procedure: May 18, 2018 PCP Angela Baumann MD Admitting Physician Todd Bender MD Indications: Chest discomfort Baseline Heart Rate: 84 Baseline Blood Pressure: Blood Pressure Systolic: 160 Blood Pressure Diastolic: 88 Baseline EKG: Baseline EKG: Sinus rhythm Summary & Conclusion: Summary: The patient was brought to the stress lab after informed consent was taken. Stress test was performed according to the Lexiscan protocol. 0.4 mg of IV Lexiscan was given. Low-grade exercise was performed. Baseline EKG showed sinus rhythm at 84BPM. Initial blood pressure was 190/114 mmHg. Maximum heart rate was 113 bpm and blood pressure 222/130 mmHg. Patient did not have any chest pain, arrhythmias or ST segment changes during the stress test. 10.88 mCi of Myoview were given for rest imaging and 30.6 mCi of Myoview given for stress imaging. Transient ischemic dilatation score 1.01, EF 71 percent. Normal wall motion. Normal myocardial perfusion imaging during rest and stress. Conclusion: Pharmacological stress test was negative for ischemia. Hypertensive response to Lexiscan. Normal LV function with no wall motion abnormalities. Normal myocardial perfusion imaging during rest and stress. Shadia GALLOWAY MD May 18, 2018 1:12 pm
--- NOTE | 2018-05-18 13:46 | NUR ---
home oxygen study pt walked on room air for 4 minutes, stopped the study and placed on 2 lpm nasal cannula spo2 increased to 92%, pt will require home oxygen at 2 lpm at all times.
--- NOTE | 2018-05-18 14:00 | Progress Note-Hospitalist ---
Subjective HPI/CC On Admission Date Seen by Provider: May 18, 2018 Time Seen by Provider: 10:30 this is a 67-year-old white female who was accepted in transfer from [place] last evening. The patient hashad a 2-3 month history of coughing and increased shortness of breath. She has had several CTs scans thatevidently had shown some pneumoniaand steroids have made her better periodically but she is beginning to progress to the point where her oxygen saturations have dropped and she has severe dyspnea.at the time my interview she is animated but becomes obviously short of breath while talking even on nasal cannula. She was told that she had emphysema back in 1985. She had smoked in the distant past but not in years. She does have a significant mold exposure. She says she had had a heart attack in the past but she is not on cardiac medications. Subjective/Events-last exam Pt reports feeling better but still somewhat short of breath following stress test. No other complaints. 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 Imaging: Reviewed Imaging Films, Reviewed Imaging Report Assessment/Plan Assessment and Plan Assess & Plan/Chief Complaint COPD Exacerbation Diagnosis/Problems Diagnosis/Problems (1) COPD exacerbation Status: Acute Assessment & Plan: Pulm consulted, appreciate recs Continue on steroids, transitioned to oral today Xopenex ordered Home oxygne study ordered Will need Pulm follow up and pulmonary rehab (2) Pneumonia Status: Acute Assessment & Plan: Continue abx, on omnicef Fungal cultures pending given mold exposure Pulm consulted appreciate recs Qualifiers: Pneumonia type: due to unspecified organism Laterality: bilateral Lung location: unspecified part of lung Qualified Codes: J18.9 - Pneumonia, unspecified organism (3) CAD (coronary artery disease) Assessment & Plan: Describes event concerning for angina on 05/06 Echo reveals preserved EF with grade 2 diastolic dysfunction Cardiology consulted, appreciate recs Stress test done today Qualifiers: Coronary Disease-Associated Artery/Lesion type: [place] artery [place] vs. transplanted heart: [place] heart Associated angina: with stable angina Qualified Codes: I25.118 - Atherosclerotic heart disease of [place] coronary artery with other forms of angina pectoris Clinical Quality Measures DVT/VTE Risk/Contraindication: Risk Factor Score Per Nursin RFS Level Per Nursing on Admit: 4+=Very High LYNN WALSH MD May 18, 2018 14:00
--- NOTE | 2018-05-18 16:00 | NUR ---
CM/SS, respond to consult. DME: Patient qualifies for new home O2. Coordinated with her preferred agency, [facility]. Referral faxed, confirmed by phone with agency. Plan is advertising writer will update agency of actual discharge, they will deliver portable to hospital room and arrange home setup directly with patient/family. Patient's daughter here with her, patient very drowsy and fell back to sleep mid-conversation. Finalize when discharge orders are received.
[2018-05-19] VITALS: BP 141/85
[2018-05-19] MEDS: LORazepam 0.5 MG (ATIVAN) TABLET PO PRN (03:44)
[2018-05-19 04:00] VITALS: BP 148/99
[2018-05-19] MEDS: LEVOTHYROXINE 100 MCG (LEVOTHROID) TAB PO SCH (06:03)
[2018-05-19] MEDS: HYDROcodone/APAP 7.5 MG/325 MG (LORTAB, LORCET PLUS) TABLET PO SCH ×2 (06:03→13:28)
[2018-05-19] MEDS: predniSONE 10 MG TAB PO SCH (06:04)
--- NOTE | 2018-05-19 06:07 | Pulmonary Progress Note ---
Subjective Time Seen by a Provider: 06:04 Subjective/Events-last exam Pt is doing better from pulmonary standpoint. Sepsis Event Evaluation Height, Weight, BMI Height: 5'6.00" Weight: 219lbs. 0.0oz. 99.309994hk; 35.4 BMI Method:Stated Exam Exam Vital Signs Date Time Temp Pulse Resp B/P (MAP) Pulse Ox O2 Delivery O2 Flow Rate FiO2 05/19/18 04:00 97.8 89 20 148/99 (115) 97 Nasal Cannula 2.00 05/19/18 01:00 74 05/19/18 00:00 97.8 88 18 141/85 (103) 98 Nasal Cannula 2.00 05/18/18 19:50 99.0 95 20 165/90 (115) 93 Room Air 05/18/18 19:45 Nasal Cannula 2.00 05/18/18 19:00 92 05/18/18 16:12 98.9 99 18 160/88 (112) 95 Nasal Cannula 2.00 05/18/18 14:25 94 Nasal Cannula 2.00 05/18/18 12:52 106 05/18/18 12:30 99.0 97 20 155/94 (114) 95 Room Air 05/18/18 08:43 112 160/88 (112) 98 05/18/18 08:40 87 190/114 (139) 97 05/18/18 08:00 Room Air 05/18/18 07:02 83 I & O 05/19/18 07:00 Intake Total 1700 ml Balance 1700 ml Height & Weight Height: 5'6.00" Weight: 219lbs. 0.0oz. 99.188874be; 35.4 BMI Method:Stated General Appearance: No Apparent Distress, Chronically ill HEENT: [facility] Respiratory: Lungs Clear, No Accessory Muscle Use, No Respiratory Distress; No Crackles, No Wheezing Cardiovascular: Regular Rate, Rhythm, No Gallop Capillary Refill: Less Than 3 Seconds Extremity: No Calf Tenderness, No Pedal Edema Neurologic/Psychiatric: Alert, Oriented x3, Normal Mood/Affect Skin: Normal Color, Cool Assessment/Plan Assessment/Plan Interstitial pneumonia -Aspergillus abx pending, -BNP 48 - DILSHAD is positive - omnicef - prednisone taper. - respiratory viral panel pending -CXR shows improvement. -Continue Rocephin and will continue to follow CXR. -Pt will probably need out patient bronchoscopy with EBUS if CT chest does not improve. -borjas culture and influenza is negative -MRSA nasal swab- is negative -Change solumedrol to prednisone taper Pulmonary edema -Will give lasix 40mg X 1 Mediastinal lymphadenopathy - probably reactive -Continue to monitor -Repeat CT scan as out patient pt will probably need bronchoscopy with EBUS. COPD hx -Will continue to follow as out patient -Out patient PFT -Will need repeat CT scan in 6-8wks after discharge CAD with grade II diastolic dysfunction -Cardiology is following. ROSHNI SIDDIQI DO May 19, 2018 06:07
[2018-05-19] MEDS ORDERED: KCL 10 MEQ TAB (MICRO K) PO NR (06:15)
[2018-05-19] MEDS ORDERED: FUROSEMIDE 40 MG/4 ML INJ (LASIX) IVP NR (06:15)
[2018-05-19 08:00] VITALS: BP 150/99
[2018-05-19] MEDS: guaiFENesin (MUCINEX) 600 MG TAB PO SCH (08:28)
[2018-05-19] MEDS: CEFDINIR 300 MG (OMNICEF) CAP PO SCH (08:28)
--- NOTE | 2018-05-19 09:13 | Cardiology Progress Note ---
Cardiology SOAP Progress Note Subjective: No cardiac complaints. Objective: I&O/Vital Signs 05/19/18 05/19/18 05/19/18 05/19/18 04:00 07:04 08:00 08:00 Temp 97.8 98.7 Pulse 89 69 82 Resp 20 20 B/P (MAP) 148/99 (115) 150/99 (116) Pulse Ox 97 96 O2 Delivery Nasal Cannula Nasal Cannula Nasal Cannula O2 Flow Rate 2.00 2.00 2.00 05/19/18 05/19/18 10:35 12:00 Temp 98.4 Pulse 95 Resp 20 B/P (MAP) 126/88 (101) Pulse Ox 94 96 O2 Delivery Nasal Cannula Nasal Cannula O2 Flow Rate 2.00 2.00 05/19/18 00:00 Intake Total 1700 ml Balance 1700 ml Weight (Pounds): 219 Weight (Ounces): 0.0 Weight (Calculated Kilograms): 99.588431 Constitutional: appears stated age, AAO x 3; No apparent distress; well- developed, well-nourished Respiratory: No accessory muscle use, No respiratory distress, No chest tender , No chest expansion is symmetric; chest is bilaterally symmetric; No lungs clear to percussion; lungs clear to auscultation; No crackles, No rhonchi, No rales, No stridor, No wheezing, No pleural rub, No other Cardiovascular: regular rate-rhythm; No irregularly irregular, No extra beats, No parasternal heave is noted, No JVD, No edema, No bradycardia, No tachycardia , No point of maximal impulse, No cardiac thrills are palpable; S1 and S2; No gallop/S3, No gallop/S4, No diastolic murmur; systolic murmur; No friction rub, No click, No other Gastrointestional: No tender, No soft, No round, No distended, No pulsatile mass, No organomegaly, No guarding, No rebound, No tenderness, No hernia, No mass, No audible bowel sounds, No abnormal bowel sounds, No abdominal bruits, No spleenomegaly, No other Extremities: No normal range of motion, No non-tender, No normal inspection, No pedal edema, No calf tenderness, No normal capillary refill, No pelvis stable , No calf tenderness, No inflammation, No pedal edema, No slow capillary refill , No swelling, No other, No abrasion, No clubbing, No cyanosis, No ecchymosis, No laceration, No no lower extremity edema bilateral, No significant edema, No tenderness, No wound Neurologic/Psychiatric: no motor/sensory deficits, alert, normal mood/affect, oriented x 3, power is 5/5 both on sides Skin: No normal color, No warm/dry, No cyanosis, No cool, No diaphoresis, No damp, No ecchymosis, No jaundice, No mottled, No pallor, No rash, No tattoos/ piercings, No ulcerations, No rash on exposed areas, No ulcerations on exposed areas, No other Results/Procedures: Labs Laboratory Tests 05/18/18 18:18: Glucometer 117H 05/19/18 06:01: Glucometer 93 Microbiology 05/14/18 Blood Culture - Preliminary, Resulted No growth 05/16/18 Influenza Types A,B Antigen (SIGRID) - Final, Complete A/P: Assessment/Dx: Shortness of breath, Chest pain, Syncope, Palpitations, Plan: Shortness of breath, no congestive heart failure on examination. She is euvolemic. Normal BNP. Echocardiogram on 05/17/2018 shows normal LV function. No significant valve disease. Chest pain, negative EKG, negative troponin. She has this vague history of NM with coronary angiography but no stents were placed. We will try to get old records. She does have significant family history of premature CAD and sudden cardiac . Nuclear stress test done 05/17/2018 shows normal myocardial perfusion. Syncope, likely associated with panic attacks. Will likely require an event monitor on discharge. Palpitation, continue telemetry. Event monitor on discharge. I will follow-up in 2-3 weeks. Thank you for your consultation. Please call me if you have any questions. Richy Raymond MD, FACP, FACC, FSCAI, FHRS, CCDS Interventional Cardiology Cardiac Electrophysiology Vascular Medicine and Endovascular Interventions Shadia RAYMOND MD May 19, 2018 9:13 am
[2018-05-19] MEDS ORDERED: CEFD300C3 PO (10:16)
[2018-05-19] MEDS ORDERED: HYDR-3584 PO (10:16)
[2018-05-19] MEDS ORDERED: OMEP20TA33 PO (10:16)
[2018-05-19] MEDS ORDERED: PRD10T PO (10:16)
[2018-05-19] MEDS ORDERED: ALBU18HF2 INH (10:16)
--- NOTE | 2018-05-19 10:21 | Discharge Inst-Simple/Standard ---
Discharge Inst-Standard Discharge Medications New, Converted or Re-Newed RX: Transmitted to Pharmacy Patient Instructions/Follow Up Plan of Care/Instructions/FU: Please continue to take your medications as written. Please follow up with your PCP in the next week. Activity as Tolerated: Yes Discharge Diet: No Restrictions Return to The Hospital For: Chest pain, shortness of breath, low oxygen readings, if you feel you are getting worse. Planned Outpatient Orders/Ref. Pneu Vac Indicated: Yes LYNN WALSH MD May 19, 2018 10:21
--- NOTE | 2018-05-19 10:22 | Discharge Summary-Hospitalist ---
Diagnosis/Chief Complaint Date of Admission May 15, 2018 at 13:03 Date of Discharge Discharge Date: May 19, 2018 Admission Diagnosis 1. Pneumonia however patient has a normal white count and is afebrile. This may be an atypical pneumonia or more likely interstitial lung disease or secondary to molds. 2. Hypothyroidism replaced 3.Zithromax allergy 4. mediastinal lymphadenopathy 5. history of spinal stenosis Discharge Diagnosis (1) COPD exacerbation Status: Acute Assessment & Plan: Pulm consulted, appreciate recs Continue on steroids, transitioned to oral today Xopenex ordered Home oxygne study ordered Will need Pulm follow up and pulmonary rehab (2) Pneumonia Status: Acute Assessment & Plan: Continue abx, on omnicef Fungal cultures pending given mold exposure Pulm consulted appreciate recs (3) CAD (coronary artery disease) Assessment & Plan: Describes event concerning for angina on 05/06 Echo reveals preserved EF with grade 2 diastolic dysfunction Cardiology consulted, appreciate recs Stress test done today Discharge Summary Procedures/Consulations Dr Carlota Raymond Discharge Physical Exam Allergies: Coded Allergies: Penicillins (Unverified Allergy, Unknown, Pt has received ceftriaxone w/o issue, 05/18/18) doxycycline (Unverified Allergy, Unknown, 05/14/18) levofloxacin (Unverified Allergy, Unknown, 05/14/18) tramadol (Unverified Allergy, Unknown, 05/14/18) Vitals & I&Os Vital Signs Date Time Temp Pulse Resp B/P (MAP) Pulse Ox O2 Delivery O2 Flow Rate FiO2 05/19/18 16:15 95 20 126/88 96 Nasal Cannula 2.00 05/19/18 12:00 98.4 General Appearance: No Apparent Distress, Chronically ill HEENT: Other (ight eye is blind) Respiratory: Lungs Clear, No Accessory Muscle Use, No Respiratory Distress; No Crackles, No Wheezing Cardiovascular: Regular Rate, Rhythm, No Gallop Gastrointestinal: Normal Bowel Sounds, Non Tender, Soft Extremity: No Calf Tenderness, No Pedal Edema Skin: Normal Color, Cool Neurologic/Psychiatric: Alert, Oriented x3, Normal Mood/Affect Hospital Course Pt was admitted for pneumonia nad CT chest revealed underlying institial lung disease. She responded well to antibiotics and inhaled steroids. She described an event concerning for angina and cardiology was consulted for further evaluation. She underwent a stress test which was negative. She continued to improve with this above mentioned therapies. We did discuss the role her anxiety plays in this and I started her on hydroxyzine for outpatient management. I called and updated her PCP's nurse to this hospital stay. She is to follow up with Dr Van in 2 weeks and her PCP in 1 week. Labs (last 24 hrs) Microbiology 05/14/18 Blood Culture - Final, Complete No growth 05/16/18 Influenza Types A,B Antigen (SIGRID) - Final, Complete Patient resulted labs reviewed. Pending Labs Imaging: Reviewed Imaging Films, Reviewed Imaging Report Discussion & Recommendations Discharge Planning: >30 minutes discharge planning Discharge Home Medications: Active Scripts Active Singulair (Montelukast Sodium) 10 Mg Tablet 10 Mg PO HS Advair 250-50 Diskus (Fluticasone/Salmeterol) 1 Each Blst.w.dev 1 Each IH BID Ventolin Hfa (Albuterol Sulfate) 18 Gm Hfa.aer.ad 18 Gm INH Q4H Hydroxyzine HCl 10 Mg Tablet 10 Mg PO BID PRN Prilosec Otc (Omeprazole Magnesium) 20 Mg Tablet.dr 20 Mg PO DAILY Prednisone 10 Mg Tab 60 Mg PO DAILY@0700 Take 6 tabs(60mg)daily, decrease by 1 tab(10mg) every other day. Cefdinir 300 Mg Capsule 300 Mg PO BID Reported Ibuprofen 200 Mg Capsule 200 Mg PO Q8H PRN Hydrocodone-Acetamin 7.5-325 (Hydrocodone/Acetaminophen) 1 Each Tablet 1 Tab PO Q8H MDD 6 Levothyroxine Sodium 100 Mcg Tablet 100 Mcg PO DAILY Instructions to patient/family Please see electronic discharge instructions given to patient. Clinical Quality Measures DVT/VTE Risk/Contraindication: Risk Factor Score Per Nursin RFS Level Per Nursing on Admit: 4+=Very High Problem Qualifiers (1) Pneumonia: Pneumonia type: due to unspecified organism Laterality: bilateral Lung location: unspecified part of lung Qualified Codes: J18.9 - Pneumonia, unspecified organism (2) CAD (coronary artery disease): Coronary Disease-Associated Artery/Lesion type: [place] artery [place] vs. transplanted heart: [place] heart Associated angina: with stable angina Qualified Codes: I25.118 - Atherosclerotic heart disease of [place] coronary artery with other forms of angina pectoris LYNN WALSH MD May 19, 2018 10:22
[2018-05-19] MEDS: RT-LEVALBUTEROL (XOPENEX) 1.25 MG/3 ML NEB NON-FORMULARY INH SCH (10:35)
[2018-05-19] MEDS ORDERED: FLUT1DIS26 IH (11:21)
[2018-05-19] MEDS ORDERED: MONT10TA21 PO (11:21)
[2018-05-19 12:00] VITALS: BP 126/88
--- NOTE | 2018-05-19 13:08 | NUR ---
CM/SS, final discharge planning. Patient discharged as anticipated. Updated [facility] as promised, they will deliver portable O2 here and coordinate patient home setup with her. Cousin here to transport patient, they both understand to wait for the portable O2 before leaving hospital. Unit RN updated.
[2018-05-19 16:15] VITALS: BP 126/88
--- NOTE | 2018-05-19 16:15 | NUR ---
DISCHARGE INSTRUCTIONS GIVEN TO PATIENT. TIME ALLOWED FOR QUESTIONS. IV REMOVED WITH CATHETER INTACT. [facility] HERE WITH HOME O2. PATIENT LEFT VIA WHEELCHAIR ACCOMPANIED BY STAFF AND FAMILY. LEFT VIA PRIVATE VEHICLE.
--- NOTE | 2018-05-26 17:52 | Physician Query-Pneumonia ---
Physician Query-Pneumonia Query to Physician: We need your assistance to accurately assign a code / DRG. Physician participation is requested in all cases of automotive glass technician uncertainty to minimize errors in code assignment and to avoid compliance issues. Based on documentation of pneumonia in the record, a review of the record revealed: Pneumonia however patient has a normal white count and is afebrile. This may be an atypical pneumonia or more likely interstitial lung disease or secondary to molds. (2) Pneumonia Status: Acute Assessment & Plan: Continue abx, on omnicef Fungal cultures pending given mold exposure Pulm consulted appreciate recs PHYSICIAN RESPONSE: Specific type of pneumonia: Other Other Physician: To Dr Oviedo If you have questions please contact: Jewelry Jobber: Kecia Ext: [phone] Thank you for your time and cooperation. Clinical Inspector Eyeglass Frames/Jewelry Jobber This is a permanent part of the medical record KECIA RIZZO May 26, 2018 17:52 RONEY GROVE MD Jun 06, 2018 09:59
--- NOTE | 2018-05-26 18:02 | Physician Query Clarification ---
PQ-Uncertain Diagnosis Admission/Discharge Admission Date: May 15, 2018 at 13:03 Discharge Date: May 19, 2018 at 16:15 The medical record reflects the following clinical scenario: History/Risk Factors: Emphysema Clinical Findings: fungal cultures, exposure to mold Treatment: Oxygen, antibiotics Question: Respiratory issued due to MOLD? Please document a response below. PHYSICIAN RESPONSE Diagnosis clinically valid: Other, explanation/clinical finding Explanation of clincal finding to Dr Oviedo In responding to this query, please exercise your independent professional judgment. The purpose of this communication is to more accurately reflect the complexity of your patients condition. The fact that a question is asked does not imply that any particular answer is desired or expected. Thank you for your timely response to this clarification. Requestors name: [ ] Phone # [ ] THIS PHYSICIAN QUERY FORM IS A PERMANENT PART OF THE MEDICAL RECORD ZARIA RIZZO May 26, 2018 18:02 RONEY GROVE MD Jun 06, 2018 09:58
--- NOTE | 2018-05-26 18:08 | Physician Query Clarification ---
PQ-Intro New Diagnosis Admission/Discharge Admission Date: May 15, 2018 at 13:03 Discharge Date: May 19, 2018 at 16:15 The medical record reflects the following clinical scenario: History/Risk Factors: emphysema, Clinical Findings cough, SOB Treatment: oxygen, antibiotics Question: After studies what was determined to be the principal reason for admission: 1. Interstitial lung disease 2. pneumonia (specify type) 3. Other, with explanation of the clinical findings. 4. Clinically undetermined, no explanation for the clinical findings. PHYSICIAN RESPONSE What condition reflects above: Other, explanation/clinical finding Explanation of clincal finding This needs to go to Dr Oviedo In responding to this query, please exercise your independent professional judgment. The purpose of this communication is to more accurately reflect the complexity of your patients condition. The fact that a question is asked does not imply that any particular answer is desired or expected. Thank you for your timely response to this clarification. Requestors name: [ ] Phone # [ ] THIS PHYSICIAN QUERY FORM IS A PERMANENT PART OF THE MEDICAL RECORD ZARIA RIZZO May 26, 2018 18:08 RONEY GROVE MD Jun 06, 2018 09:57
--- NOTE | 2018-06-07 21:35 | Physician Query Clarification ---
PQ-Intro New Diagnosis Admission/Discharge Admission Date: May 15, 2018 at 13:03 Discharge Date: May 19, 2018 at 16:15 PQ-Intro New Diagnosis Admission/Discharge Admission Date: May 15, 2018 at 13:03 Discharge Date: May 19, 2018 at 16:15 The medical record reflects the following clinical scenario: History/Risk Factors: emphysema, Clinical Findings cough, SOB Treatment: oxygen, antibiotics Question: After studies what was determined to be the principal reason for admission: 1. Interstitial lung disease 2. pneumonia (specify type) 3. Other, with explanation of the clinical findings. 4. Clinically undetermined, no explanation for the clinical findings. PHYSICIAN RESPONSE What condition reflects above: Explanation of clincal finding PHYSICIAN RESPONSE What condition reflects above: 2 (CAP) In responding to this query, please exercise your independent professional judgment. The purpose of this communication is to more accurately reflect the complexity of your patients condition. The fact that a question is asked does not imply that any particular answer is desired or expected. Thank you for your timely response to this clarification. Requestors name: [ ] Phone # [ ] THIS PHYSICIAN QUERY FORM IS A PERMANENT PART OF THE MEDICAL RECORD ZARIA RIZZO Jun 07, 2018 21:35 LYNN WALSH MD Jun 08, 2018 20:49
--- NOTE | 2018-06-07 21:42 | Physician Query Clarification ---
PQ-Uncertain Diagnosis Admission/Discharge Admission Date: May 15, 2018 at 13:03 Discharge Date: May 19, 2018 at 16:15 PQ-Uncertain Diagnosis Admission/Discharge Admission Date: May 15, 2018 at 13:03 Discharge Date: May 19, 2018 at 16:15 The medical record reflects the following clinical scenario: History/Risk Factors: Emphysema Clinical Findings: fungal cultures, exposure to mold Treatment: Oxygen, antibiotics Question: Respiratory issue due to MOLD? Please document a response below. PHYSICIAN RESPONSE Diagnosis clinically valid: Explanation of clinical findings: PHYSICIAN RESPONSE Diagnosis clinically valid: Undetermined In responding to this query, please exercise your independent professional judgment. The purpose of this communication is to more accurately reflect the complexity of your patients condition. The fact that a question is asked does not imply that any particular answer is desired or expected. Thank you for your timely response to this clarification. Requestors name: [ ] Phone # [ ] THIS PHYSICIAN QUERY FORM IS A PERMANENT PART OF THE MEDICAL RECORD ZARIA RIZZO Jun 07, 2018 21:41 LYNN WALSH MD Jun 08, 2018 20:48
== END 2018-05-19 16:15 | disposition home or self-care (01) | DRG 194 ==
LOC: ER FS 15:36 → 4TH 19:51 → UNDOADMOB 19:51 → 4TH 21:30 → OBSVTOIN 05-15 13:03 → INTOOBSV 05-15 13:03 → UNDODISIN 05-19 16:15
PROVIDERS: ADMIT Internal Medicine; ATTEND Internal Medicine
DX: J18.9 Pneumonia, unspecified organism (principal); J84.9 Interstitial pulmonary disease, unspecified; J43.9 Emphysema, unspecified; E87.2 Acidosis; E87.1 Hypo-osmolality and hyponatremia; R06.03 Acute respiratory distress; R09.02 Hypoxemia; I25.118 Atherosclerotic heart disease of native coronary artery with other forms of angina pectoris; R59.0 Localized enlarged lymph nodes; R07.9 Chest pain, unspecified; I25.2 Old myocardial infarction; E03.9 Hypothyroidism, unspecified; M48.00 Spinal stenosis, site unspecified; R55 Syncope and collapse; F41.0 Panic disorder [episodic paroxysmal anxiety]; R00.2 Palpitations; Z77.120 Contact with and (suspected) exposure to mold (toxic); Z82.41 Family history of sudden cardiac death; Z82.49 Family history of ischemic heart disease and other diseases of the circulatory system; Z87.891 Personal history of nicotine dependence
CPT/HCPCS: 36415; 71045; 71046; 71275; 78452; 80053; 82785; 82962; 83605; 83735; 83880; 84484; 85025; 85379; 86003; 86038; 86606; 87040; 87081; 87804; 93005; 93017; 93041; 93306; 94640; 94760; 94761; 96365; 96375; G0378

== ENCOUNTER 2018-06-07 14:19 | Outpatient (RCR) | payer MEDICARE, MEDICAID ==
[~2018-06-07 14:19] MED LIST: ALBU18HF2 INH; CEFD300C3 PO; CEFU500T63 PO; FLUT1DIS26 IH; HYDR-3584 PO; HYDR-3816; HYDR-3816 PO; IBUP-2185 PO; LEVO100T7; LEVO100T7 PO; MONT10TA21 PO; OMEP20TA33 PO; PRD10T PO
== END 2018-09-05 | disposition home or self-care (01) ==
LOC: PULM 14:19
PROVIDERS: ATTEND Family Medicine
DX: J44.1 Chronic obstructive pulmonary disease with (acute) exacerbation (principal)
CPT/HCPCS: 99211

== ENCOUNTER → 2019-04-08 | Outpatient (CLI) | payer MEDICARE, MEDICAID ==
[2019-04-08 15:36] LABS: HEMATOCRIT 40 % (35-52); HEMOGLOBIN 13.2 G/DL (11.5-16.0); MEAN CORPUSCULAR HEMOGLOBIN 29 PG (25-34); MEAN CORPUSCULAR HGB CONC 33 G/DL (32-36); MEAN CORPUSCULAR VOLUME 87 FL (80-99); PLATELET COUNT 352 10^3/uL (130-400); RED CELL DISTRIBUTION WIDTH 13.9 % (10.0-14.5); WHITE BLOOD COUNT 15.2 10^3/uL (4.3-11.0)
[2019-04-08 15:37] LABS: BASOPHILS # (AUTO) 0.1 10^3/uL (0.0-0.1); BASOPHILS % (AUTO) 1 % (0-10); EOSINOPHILS # (AUTO) 0.2 10^3/uL (0.0-0.3); EOSINOPHILS % (AUTO) 1 % (0-10); LYMPHOCYTES # (AUTO) 1.7 X 10^3 (1.0-4.0); LYMPHOCYTES % (AUTO) 11 % (12-44); MONOCYTES # (AUTO) 1.2 X 10^3 (0.0-1.0); MONOCYTES % (AUTO) 8 % (0-12); NEUTROPHILS # (AUTO) 11.8 X 10^3 (1.8-7.8); NEUTROPHILS % (AUTO) 77 % (42-75)
[2019-04-08 15:56] LABS: ALBUMIN 3.9 GM/DL (3.2-4.5); BILIRUBIN,TOTAL 0.4 MG/DL (0.1-1.0); CALCIUM 9.4 MG/DL (8.5-10.1); CREATININE SERUM 1.01 MG/DL (0.60-1.30); POTASSIUM 3.8 MMOL/L (3.6-5.0); TOTAL PROTEIN 6.3 GM/DL (6.4-8.2)
[2019-04-08 16:03] LABS: BAND NEUTROPHILS 8 %; BASOPHILS % (MANUAL) 0 %; EOSINOPHILS % (MANUAL) 0 %; LYMPHOCYTES % (MANUAL) 14 %; METAMYELOCYTES % 1 %; MONOCYTES % (MANUAL) 11 %; NEUTROPHILS % (MANUAL) 66 %
[2019-04-08 16:04] LABS: RBC MORPH NORMAL
== END ==
LOC: LAB FS 15:14
PROVIDERS: ATTEND Internal Medicine Pulmonary Disease
DX: J84.9 Interstitial pulmonary disease, unspecified (principal); Z79.899 Other long term (current) drug therapy
CPT/HCPCS: 36415; 80053; 85007; 85027

== ENCOUNTER 2019-04-10 06:10 | Emergency (ER) | payer MEDICARE, MEDICAID ==
[~2019-04-10] VITALS: Ht 167 cm; Wt 104.0 kg
[2019-04-10] MEDS ORDERED: LORazepam INJ 2 MG/ML (ATIVAN) VIAL ONE (06:23)
[2019-04-10 06:28] LABS: HEMATOCRIT 40 % (35-52); HEMOGLOBIN 13.3 G/DL (11.5-16.0); LYMPHOCYTES % (AUTO) 8 % (12-44); MEAN CORPUSCULAR HEMOGLOBIN 30 PG (25-34); MEAN CORPUSCULAR HGB CONC 33 G/DL (32-36); MEAN CORPUSCULAR VOLUME 89 FL (80-99); MEAN PLATELET VOLUME 8.5 FL (7.4-10.4); MONOCYTES % (AUTO) 5 % (0-12); NEUTROPHILS % (AUTO) 84 % (42-75); PLATELET COUNT 246 10^3/uL (130-400); WHITE BLOOD COUNT 13.4 10^3/uL (4.3-11.0)
--- NOTE | 2019-04-10 06:28 | ED Respiratory ---
General Chief Complaint: Respiratory Problems Stated Complaint: SOB Source: patient, EMS Exam Limitations: no limitations History of Present Illness Date Seen by Provider: Apr 10, 2019 Time Seen by Provider: 06:23 Initial Comments This 68 year old white female presents with increasing dyspnea. On arrival of EMS her sat's were in the 60's. She responded to oxygen in route to the ED. She has respiratory failure treated at by Dr. Carty (cardiology) and Dr. Tapia (pulmonary). She has been using lasix but has noted increasing peripheral edema and decreasing urinary output. She denies chest pain, fever, chill, N or V, productive cough, or flu like symptoms. Allergies and Home Medications Allergies Coded Allergies: Penicillins (Unverified Allergy, Unknown, Pt has received ceftriaxone w/o issue, 05/18/18) doxycycline (Unverified Allergy, Unknown, 05/14/18) levofloxacin (Unverified Allergy, Unknown, 05/14/18) tramadol (Unverified Allergy, Unknown, 05/14/18) Home Medications Albuterol Sulfate 18 Gm Hfa.aer.ad, 18 GM INH Q4H Prescribed by: LYNN WALSH on 05/19/18 1016 Cefdinir 300 Mg Capsule, 300 MG PO BID Prescribed by: LYNN WALSH on 05/19/18 1016 Fluticasone/Salmeterol 1 Each Blst.w.dev, 1 EACH IH BID Prescribed by: LYNN WALSH on 05/19/18 1121 Hydrocodone/Acetaminophen 1 Each Tablet, 1 TAB PO Q8H, (Reported) Hydroxyzine HCl 10 Mg Tablet, 10 MG PO BID PRN for ANXIETY Prescribed by: LYNN WALSH on 05/19/18 1016 Ibuprofen 200 Mg Capsule, 200 MG PO Q8H PRN for PAIN-MILD, (Reported) Levothyroxine Sodium 100 Mcg Tablet, 100 MCG PO DAILY, (Reported) Montelukast Sodium 10 Mg Tablet, 10 MG PO HS Prescribed by: LYNN WALSH on 05/19/18 1121 Omeprazole Magnesium 20 Mg Tablet.dr, 20 MG PO DAILY Prescribed by: LYNN WALSH on 05/19/18 1016 Prednisone 10 Mg Tab, 60 MG PO DAILY@0700 Take 6 tabs(60mg)daily, decrease by 1 tab(10mg) every other day. Prescribed by: LYNN WALSH on 05/19/18 1016 Patient Home Medication List Home Medication List Reviewed: Yes Review of Systems Review of Systems Constitutional: No chills; malaise EENTM: no symptoms reported Respiratory: short of breath Cardiovascular: No chest pain Gastrointestinal: No nausea, No vomiting Genitourinary: decreased output : No Musculoskeletal: no symptoms reported Skin: no symptoms reported Psychiatric/Neurological: Anxiety Hematologic/Lymphatic: No Symptoms Reported Immunological/Allergic: no symptoms reported Past Hzlupww-Ackvch-Vepfdt Hx Past Med/Social Hx: Reviewed Nursing Past Med/Soc Hx Patient Social History Type Used: Cigarettes 2nd Hand Smoke Exposure: No Recent Foreign Travel: No Contact w/Someone Who Travel: No Recent Hopitalizations: No Physical Abuse: No Sexual Abuse: No Seasonal Allergies Seasonal Allergies: No Past Medical History Surgeries: Yes (teeth) Gallbladder, Tubal Ligation Respiratory: Yes Emphysema Cardiac: No (Mitral Valve Prolapse) Heart Attack Neurological: No Female Reproductive Disorders: Denies Sexually Transmitted Disease: No HIV/AIDS: No Genitourinary: No Gastrointestinal: No Musculoskeletal: Yes (degenerative bone disease) Endocrine: Yes Hypothyroidsim HEENT: No Cancer: No Psychosocial: No Integumentary: No Blood Disorders: No Adverse Reaction/Blood Tranf: No Physical Exam Vital Signs - First Documented 04/10/19 06:10 Temp 37.8 Pulse 117 Resp 26 B/P (MAP) 156/77 (103) Pulse Ox 100 O2 Delivery Non Rebreather O2 Flow Rate 15.00 Capillary Refill : Height: 5'6.00" Weight: 219lbs. 0.0oz. 99.144184ws; 35.4 BMI Method:Stated General Appearance: mild distress, obese Eyes: Bilateral Eye Normal Inspection HEENT: normal ENT inspection Neck: normal inspection Respiratory: decreased breath sounds Cardiovascular: regular rate, rhythm Gastrointestinal: normal bowel sounds, non tender, soft Extremities: normal inspection, swelling (3+ peripheral edema legs) Neurologic/Psychiatric: no motor/sensory deficits, alert Skin: normal color Progress/Results/Core Measures Suspected Sepsis SIRS Temperature: Pulse: Respiratory Rate: Laboratory Tests 04/10/19 06:15: White Blood Count 13.4H Blood Pressure / Mean: Laboratory Tests 04/10/19 06:15: Creatinine 1.11, INR Comment 1.0, Platelet Count 246, Total Bilirubin 0.5 Results/Orders Lab Results Laboratory Tests Test 04/10/19 06:15 Range/Units White Blood Count 13.4 H 4.3-11.0 10^3/uL Red Blood Count 4.48 4.35-5.85 10^6/uL Hemoglobin 13.3 11.5-16.0 G/DL Hematocrit 40 35-52 % Mean Corpuscular Volume 89 80-99 FL Mean Corpuscular Hemoglobin 30 25-34 PG Mean Corpuscular Hemoglobin Concent 33 32-36 G/DL Red Cell Distribution Width 14.0 10.0-14.5 % Platelet Count 246 130-400 10^3/uL Mean Platelet Volume 8.5 7.4-10.4 FL Neutrophils (%) (Auto) 84 H 42-75 % Lymphocytes (%) (Auto) 8 L 12-44 % Monocytes (%) (Auto) 5 0-12 % Eosinophils (%) (Auto) 1 0-10 % Basophils (%) (Auto) 0 0-10 % Neutrophils # (Auto) 11.2 H 1.8-7.8 X 10^3 Lymphocytes # (Auto) 1.1 1.0-4.0 X 10^3 Monocytes # (Auto) 0.7 0.0-1.0 X 10^3 Eosinophils # (Auto) 0.1 0.0-0.3 10^3/uL Basophils # (Auto) 0.1 0.0-0.1 10^3/uL Neutrophils % (Manual) 87 % Lymphocytes % (Manual) 8 % Monocytes % (Manual) 3 % Eosinophils % (Manual) 2 % Microcytosis MARKED Prothrombin Time 13.2 12.2-14.7 SEC INR Comment 1.0 0.8-1.4 Activated Partial Thromboplast Time 24 24-35 SEC D-Dimer 0.57 H 0.00-0.49 UG/ML Sodium Level 133 L 135-145 MMOL/L Potassium Level 4.0 3.6-5.0 MMOL/L Chloride Level 93 L 98-107 MMOL/L Carbon Dioxide Level 28 21-32 MMOL/L Anion Gap 12 5-14 MMOL/L Blood Urea Nitrogen 18 7-18 MG/DL Creatinine 1.11 0.60-1.30 MG/DL Estimat Glomerular Filtration Rate 49 BUN/Creatinine Ratio 16 Glucose Level 95 70-105 MG/DL Calcium Level 9.6 8.5-10.1 MG/DL Corrected Calcium 9.8 8.5-10.1 MG/DL Magnesium Level 1.9 1.6-2.4 MG/DL Total Bilirubin 0.5 0.1-1.0 MG/DL Aspartate Amino Transf (AST/SGOT) 15 5-34 U/L Alanine Aminotransferase (ALT/SGPT) 21 0-55 U/L Alkaline Phosphatase 83 40-136 U/L Myoglobin 48.8 10.0-92.0 NG/ML Troponin I < 0.30 <0.30 NG/ML Pro-B-Type Natriuretic Peptide 142.3 H <75.0 PG/ML Total Protein 6.5 6.4-8.2 GM/DL Albumin 3.8 3.2-4.5 GM/DL My Orders Orders - GIA GOMES MD Cbc With Automated Diff (04/10/19 06:19) Magnesium (04/10/19 06:19) Chest 1 View Ap/Pa Only (04/10/19 06:19) Ekg Tracing (04/10/19 06:19) Comprehensive Metabolic Panel (04/10/19 06:19) Myoglobin Serum (04/10/19 06:19) Protime With Inr (04/10/19 06:19) Partial Thromboplastin Time (04/10/19 06:19) O2 (04/10/19 06:19) Monitor-Rhythm Ecg Trace Only (04/10/19 06:19) Lipid Panel (04/11/19 06:00) Ed Iv/Invasive Line Start (04/10/19 06:19) Fibrin Degradation Products (04/10/19 06:19) Troponin I Fs (04/10/19 06:19) Probnp Fs (04/10/19 06:19) Furosemide Injection (Lasix Injection) (04/10/19 06:30) Lorazepam Injection (Ativan Injection) (04/10/19 06:30) Lorazepam Injection (Ativan Injection) (04/10/19 06:23) Manual Differential (04/10/19 06:15) Albuterol/Ipra Inhalation Soln (Duoneb I (04/10/19 06:45) Svn Small Volume Nebulizer (04/10/19 06:34) Ns Iv 1000 Ml (Sodium Chloride 0.9%) (04/10/19 06:45) Ct Chest Wo (04/10/19 07:22) Lactic Acid Analyzer (04/10/19 08:17) Blood Culture (04/10/19 08:17) Arterial Blood Gas (04/10/19 08:28) Influenza A And B Antigens (04/10/19 08:28) Methylprednisolone Sod Succ (Solu-Medrol (04/10/19 09:00) Medications Given in ED Current Medications Medications Dose Ordered Sig/Mahamed Route Start Time Stop Time Status Last Admin Dose Admin Albuterol/ Ipratropium 3 ml ONCE ONCE INH 04/10/19 06:45 04/10/19 06:46 DC 04/10/19 06:54 3 ML Furosemide 80 mg ONCE ONCE IVP 04/10/19 06:30 04/10/19 06:31 DC 04/10/19 06:29 80 MG Lorazepam 1 mg ONCE ONCE IVP 04/10/19 06:30 04/10/19 06:31 DC 04/10/19 06:29 1 MG Vital Signs/I&O 04/10/19 06:10 Temp 37.8 Pulse 117 Resp 26 B/P (MAP) 156/77 (103) Pulse Ox 100 O2 Delivery Non Rebreather O2 Flow Rate 15.00 Capillary Refill : Progress Note : Time: 06:39 Progress Note I spoke with the transfer center at . Patient suffers from previous respiratory failure. Although she has diastolic dysfunction she had a normal ejection fraction on recent evaluation at . 9 a.m. The patient's chest x-ray and CT of the chest is suggestive of an autoimmune pneumonitis. Patient's white count was minimally elevated at 13 8. Her d-dimer was at the upper limits of normal. The patient's BNP was less than 200. Next EKG demonstrated sinus tachycardia with left atrial enlargement. An old inferior infarct cannot be excluded. Treatment course: The patient was given high flow oxygen per mask with a sat of 100 percent. After telephone consultation with , was kind enough to accept the patient on the pulmonary service. At 's request arterial blood gases, a flu a and B, and 125 mg of Solu-Medrol were ordered and given. ECG Initial ECG Impression Date: Apr 10, 2019 Departure Impression Primary Impression: RESPIRATORY FAILURE, UNSP, UNSP W HYPOXIA OR HYPERCAPNIA Disposition: 02 XFER SHT-TRM HOSP Condition: Improved Transfer Transfer Reason: Exceeds level of care Time Spoke to Accepting Phy: 08:[address] Gil, pulmonary [facility]. Transfer Time: 09:00 Transfer Facility: Method of Transfer: EMS Departure-Patient Inst. Referrals: AIDEN PATTERSON MD (PCP/Family) Primary Care Physician GIA GOMES MD Apr 10, 2019 06:28
[2019-04-10 06:29] LABS: BASOPHILS # (AUTO) 0.1 10^3/uL (0.0-0.1); BASOPHILS % (AUTO) 0 % (0-10); EOSINOPHILS # (AUTO) 0.1 10^3/uL (0.0-0.3); EOSINOPHILS % (AUTO) 1 % (0-10); LYMPHOCYTES # (AUTO) 1.1 X 10^3 (1.0-4.0); MONOCYTES # (AUTO) 0.7 X 10^3 (0.0-1.0); NEUTROPHILS # (AUTO) 11.2 X 10^3 (1.8-7.8)
[2019-04-10] MEDS ORDERED: LORazepam INJ 2 MG/ML (ATIVAN) VIAL IVP ONE ×2 (06:30→06:45)
[2019-04-10] MEDS ORDERED: FUROSEMIDE 40 MG/4 ML INJ (LASIX) IVP ONE (06:30)
[2019-04-10 06:37] LABS: EOSINOPHILS % (MANUAL) 2 %; LYMPHOCYTES % (MANUAL) 8 %; MONOCYTES % (MANUAL) 3 %; NEUTROPHILS % (MANUAL) 87 %; PROTHROMBIN TIME PATIENT 13.2 SEC (12.2-14.7)
[2019-04-10 06:38] LABS: MICROCYTOSIS MARKED
[2019-04-10 06:44] LABS: BILIRUBIN,TOTAL 0.5 MG/DL (0.1-1.0); CALCIUM 9.6 MG/DL (8.5-10.1); CREATININE SERUM 1.11 MG/DL (0.60-1.30); MAGNESIUM 1.9 MG/DL (1.6-2.4); TOTAL PROTEIN 6.5 GM/DL (6.4-8.2)
[2019-04-10 06:45] LABS: ALBUMIN 3.8 GM/DL (3.2-4.5)
[2019-04-10] MEDS ORDERED: NS IV 1000 ML 1,000 ML IV SCH (06:45)
[2019-04-10] MEDS ORDERED: RT-ALBUTEROL/IPRATROPIUM 3 ML (DUONEB) VIAL INH ONE (06:45)
--- NOTE | 2019-04-10 06:55 | NUR ---
Report from Melissa SPEAR. RN's review of orders and bedside report. Pt is again being coached to slow breathing pattern and control the hyperventilation seen on arrival. Ativan given earlier. Pt very anxious with NRB mask on.
--- NOTE | 2019-04-10 07:08 | Diagnostic Imaging Report ---
CHEST 1 VIEW AP/PA ONLY Indication: Shortness of breath Comparison: 05/17/2018 Findings: Exam is limited by respiratory motion artifact and portable technique. There is also kyphotic positioning of the patient with the head and neck soft tissues overlying the lung apices. Ill-defined opacities over lung bases have not substantially changed. No gross pneumothorax or pleural effusion. Grossly stable cardiomediastinal silhouette. Impression: 1. Technically limited examination shows no gross abnormality or significant change since 05/17/2018. Dictated by: Dictated on workstation # [id number]
--- NOTE | 2019-04-10 08:18 | Diagnostic Imaging Report ---
CT CHEST WO TECHNIQUE: Multiple contiguous axial images were obtained through the chest without the use of intravenous contrast. All CT scans use one or more of the following dose optimizing techniques: automated exposure control, MA and/or KvP adjustment based on a patient size and exam type, or iterative reconstruction. INDICATION: Shortness of breath. History of congestive heart failure COMPARISON: CTA chest of 05/14/2018 FINDINGS: Lungs and airway: No endoluminal nodule within the trachea. Multifocal groundglass attenuation results in mosaic attenuation. There are also some peribronchial consolidations in the bilateral upper lung zones that are similar. No interlobular septal thickening. No pulmonary mass, cysts or pulmonary fibrosis. Pleura: No pleural effusion or pneumothorax. Heart and mediastinum: Thyroid is normal. No supraclavicular or axillary lymphadenopathy. A few borderline enlarged mediastinal lymph nodes are unchanged since the prior examination. No juxtaphrenic lymphadenopathy. Assessment for hilar lymphadenopathy is limited. Heart is upper limits of normal in size without pericardial effusion. Distal esophagus is partially filled with fluid. Upper abdomen: Cholecystectomy. No features of acute abnormality in the upper abdomen. Musculoskeletal: No worrisome focal osseous lesion. IMPRESSION: 1. The abnormal appearance of the lungs has not substantially changed since 05/14/2018. Therefore, this is more likely due to a chronic process such as nonspecific interstitial pneumonia (NSIP), less likely hypersensitivity pneumonitis or other inflammatory lung disease such as organizing pneumonia. While mild pulmonary edema could be superimposed, this is also less likely given the lack of interstitial thickening. Dictated by: Dictated on workstation # [id number]
--- NOTE | 2019-04-10 08:45 | NUR ---
Attempt to ween to nasal cannula and at 5-6 L/m patient desating to < 84% rapidly. Re-applied NRB at 10 L/M to return SaO2 to 96% rapidly.
--- NOTE | 2019-04-10 08:45 | NUR ---
Pt had a secondary IV started 20 ga to LAC as patient positions arm that occludes flow on right FA. IV of NS infusing at 100 ml/hr per Presley pump. Only 200 ml infused since initiated earlier.
--- NOTE | 2019-04-10 08:55 | NUR ---
Solu-Medrol 125 mg SIVP given.
[2019-04-10] MEDS ORDERED: methylPREDNISolone 125 MG (Solu-MEDROL) VIAL IVP ONE (09:00)
--- NOTE | 2019-04-10 09:00 | NUR ---
Lactic Acid drawn along with Blood Culture set #1.
--- NOTE | 2019-04-10 09:05 | NUR ---
Swabbed nares for flu, patient had ABG's drawn from L radial per this RN. Temp 38.1. Pt is remaining on 10 L/M NRB.
[2019-04-10 09:30] LABS: ABG PCO2 42 MMHG (35-45); ABG PH 7.53 (7.37-7.43); ABG PO2 90 MMHG (79-93)
[2019-04-10] MEDS ORDERED: fentaNYL INJECTION 100 MCG/2 ML AMP IVP ONE (09:30)
[2019-04-10 09:31] LABS: ABG BASE EXCESS 11.2 MMOL/L (-2.5-2.5); ABG OXYGEN SATURATION 98 % (94-100); ABG TCO2 36.4 MMOL/L (21.0-31.0); ALLENS TEST YES-POS; PATIENT TEMP 38.1; VENTILATOR NO
[2019-04-10 09:32] LABS: INSPIRED O2 10% NRB
--- NOTE | 2019-04-10 10:45 | NUR ---
Report to [facility].
--- NOTE | 2019-04-10 10:48 | NUR ---
Paging for [facility] EMS, [place] reports back in service [id number].
--- NOTE | 2019-04-10 10:50 | NUR ---
EMS report will have small delay to arrival, preparing for transfer.
[2019-04-10 11:30] VITALS: BP 110/68
--- NOTE | 2019-04-10 11:30 | NUR ---
Patient depart from [facility] to [facility], see Transfer form and discharge screen.
--- NOTE | 2019-04-10 11:30 | NUR ---
[facility] arrival for transfer. Report to Kirill [place].
--- NOTE | 2019-04-10 11:45 | NUR ---
Call report to Tia SPEAR for [id number] which is a unit change and gave entire report again. EMS in route departure time 1130.
== END 2019-04-10 11:30 | disposition short-term general hospital (02) ==
LOC: ER FS 06:10 → EDUNIT# 06:10 → ER FS 11:30
DX: J96.90 Respiratory failure, unspecified, unspecified whether with hypoxia or hypercapnia (principal); J43.9 Emphysema, unspecified; I25.2 Old myocardial infarction; E03.9 Hypothyroidism, unspecified; Z88.0 Allergy status to penicillin; Z88.1 Allergy status to other antibiotic agents; Z88.5 Allergy status to narcotic agent; Z79.51 Long term (current) use of inhaled steroids; Z79.52 Long term (current) use of systemic steroids; Z98.51 Tubal ligation status
CPT/HCPCS: 36415; 71045; 71250; 80053; 82805; 83605; 83735; 83874; 83880; 84484; 85007; 85027; 85379; 85610; 85730; 87040; 87077; 87186; 87804; 93005; 93041; 96361; 96374; 96375

== ENCOUNTER 2019-04-19 11:11 | Emergency (ER) | payer MEDICARE, MEDICAID ==
[~2019-04-19] VITALS: Ht 167 cm; Wt 113.0 kg
--- NOTE | 2019-04-19 11:32 | ED Respiratory ---
General Chief Complaint: Respiratory Problems Stated Complaint: SOB Source: patient, EMS Exam Limitations: no limitations History of Present Illness Date Seen by Provider: Apr 19, 2019 Time Seen by Provider: 11:15 Initial Comments The patient is a pleasant 68-year-old female brought in by EMS for evaluation of shortness of breath and tachycardia. She states that her symptoms started yesterday. She is on palliative care for a lung disease for which she sees a s pecialist at . She tells me that she is a DO NOT RESUSCITATE. She was scheduled to see her loader helper sorting yard today in [place] which because of the tachycardia she's been having. She is also reporting some chest discomfort which was bothering her at home but is now better. She is alert and oriented 4, calm, and appears to be in no distress at this time. EMS reports that on arrival she was saturating in the 70-75% range and that after placing her on some oxygen she quickly came up into the high 90s. Timing/Duration: yesterday Severity: moderate Prior Episodes/Possible Cause: frequent episodes Modifying Factors: Improves With Oxygen (helps) Associated Symptoms: cough, shortness of breath Allergies and Home Medications Allergies Coded Allergies: Penicillins (Unverified Allergy, Unknown, Pt has received ceftriaxone w/o issue, 05/18/18) doxycycline (Unverified Allergy, Unknown, 05/14/18) levofloxacin (Unverified Allergy, Unknown, 05/14/18) tramadol (Unverified Allergy, Unknown, 05/14/18) Home Medications Albuterol Sulfate 18 Gm Hfa.aer.ad, 18 GM INH Q4H Prescribed by: LYNN WALSH on 05/19/18 1016 Cefdinir 300 Mg Capsule, 300 MG PO BID Prescribed by: LYNN WALSH on 05/19/18 1016 Fluticasone/Salmeterol 1 Each Blst.w.dev, 1 EACH IH BID Prescribed by: LYNN WALSH on 05/19/18 1121 Hydrocodone/Acetaminophen 1 Each Tablet, 1 TAB PO Q8H, (Reported) Hydroxyzine HCl 10 Mg Tablet, 10 MG PO BID PRN for ANXIETY Prescribed by: LYNN WALSH on 05/19/18 1016 Ibuprofen 200 Mg Capsule, 200 MG PO Q8H PRN for PAIN-MILD, (Reported) Levothyroxine Sodium 100 Mcg Tablet, 100 MCG PO DAILY, (Reported) Montelukast Sodium 10 Mg Tablet, 10 MG PO HS Prescribed by: LYNN WALSH on 05/19/18 1121 Omeprazole Magnesium 20 Mg Tablet.dr, 20 MG PO DAILY Prescribed by: LYNN WALSH on 05/19/18 1016 Prednisone 10 Mg Tab, 60 MG PO DAILY@0700 Take 6 tabs(60mg)daily, decrease by 1 tab(10mg) every other day. Prescribed by: LYNN WALSH on 05/19/18 1016 Patient Home Medication List Home Medication List Reviewed: Yes Review of Systems Review of Systems Constitutional: no symptoms reported EENTM: no symptoms reported Respiratory: cough, short of breath Cardiovascular: chest pain Gastrointestinal: no symptoms reported Genitourinary: no symptoms reported Musculoskeletal: no symptoms reported Skin: no symptoms reported Psychiatric/Neurological: No Symptoms Reported Hematologic/Lymphatic: No Symptoms Reported Immunological/Allergic: no symptoms reported All Other Systems Reviewed Negative Unless Noted: Yes Past Wlclwcu-Ocpapc-Asvbuh Hx Past Med/Social Hx: Reviewed Nursing Past Med/Soc Hx Patient Social History Alcohol Use: Denies Use Recreational Drug Use: No Type Used: Cigarettes 2nd Hand Smoke Exposure: No Recent Foreign Travel: No Recent Hopitalizations: No Physical Abuse: No Sexual Abuse: No Mistreated: No Fear: No Seasonal Allergies Seasonal Allergies: No Past Medical History Surgeries: Yes (teeth) Gallbladder, Tubal Ligation Respiratory: Yes Emphysema Cardiac: No (Mitral Valve Prolapse) Heart Attack Neurological: No Female Reproductive Disorders: Denies Sexually Transmitted Disease: No HIV/AIDS: No Genitourinary: No Gastrointestinal: No Musculoskeletal: Yes (degenerative bone disease) Endocrine: Yes Hypothyroidsim HEENT: No Cancer: No Psychosocial: No Integumentary: No Blood Disorders: No Adverse Reaction/Blood Tranf: No Physical Exam Vital Signs - First Documented 04/19/19 04/19/19 11:12 11:31 Temp 36.5 Pulse 103 Resp 23 B/P (MAP) 142/67 (92) Pulse Ox 96 O2 Delivery Nasal Cannula O2 Flow Rate 6.00 FiO2 96 Capillary Refill : Height: 5'6.00" Weight: 219lbs. 0.0oz. 99.305602nb; 37.00 BMI Method:Stated General Appearance: WD/WN, no apparent distress HEENT: PERRL/EOMI, normal ENT inspection, pharynx normal Neck: non-tender, full range of motion, supple, normal inspection Respiratory: chest non-tender, normal breath sounds, no respiratory distress, no accessory muscle use Cardiovascular: regular rate, rhythm, no edema, no JVD, tachycardia Gastrointestinal: normal bowel sounds, non tender, soft Extremities: normal range of motion, non-tender, no pedal edema Neurologic/Psychiatric: health informatics specialist II-XII nml as tested, alert, normal mood/affect, oriented x 3 Skin: normal color, warm/dry Focused Exam Lactate Level 04/19/19 11:27: Lactic Acid Level 1.47 Lactic Acid Level Laboratory Tests Test 04/19/19 11:27 Lactic Acid Level 1.47 MMOL/L (0.50-2.00) Progress/Results/Core Measures Suspected Sepsis SIRS Temperature: Pulse: Respiratory Rate: Laboratory Tests 04/19/19 11:27: White Blood Count 14.0H Blood Pressure / Mean: 04/19/19 11:27: Lactic Acid Level 1.47 Laboratory Tests 04/19/19 11:27: Creatinine 0.96, Platelet Count 418H, Total Bilirubin 0.3 Results/Orders Lab Results Laboratory Tests Test 04/19/19 11:27 Range/Units White Blood Count 14.0 H 4.3-11.0 10^3/uL Red Blood Count 4.72 4.35-5.85 10^6/uL Hemoglobin 13.7 11.5-16.0 G/DL Hematocrit 41 35-52 % Mean Corpuscular Volume 87 80-99 FL Mean Corpuscular Hemoglobin 29 25-34 PG Mean Corpuscular Hemoglobin Concent 33 32-36 G/DL Red Cell Distribution Width 14.0 10.0-14.5 % Platelet Count 418 H 130-400 10^3/uL Mean Platelet Volume 9.2 7.4-10.4 FL Neutrophils (%) (Auto) 64 42-75 % Lymphocytes (%) (Auto) 22 12-44 % Monocytes (%) (Auto) 8 0-12 % Eosinophils (%) (Auto) 1 0-10 % Basophils (%) (Auto) 1 0-10 % Neutrophils # (Auto) 8.9 H 1.8-7.8 X 10^3 Lymphocytes # (Auto) 3.1 1.0-4.0 X 10^3 Monocytes # (Auto) 1.0 0.0-1.0 X 10^3 Eosinophils # (Auto) 0.2 0.0-0.3 10^3/uL Basophils # (Auto) 0.1 0.0-0.1 10^3/uL D-Dimer 0.88 H 0.00-0.49 UG/ML Sodium Level 135 135-145 MMOL/L Potassium Level 4.1 3.6-5.0 MMOL/L Chloride Level 93 L 98-107 MMOL/L Carbon Dioxide Level 27 21-32 MMOL/L Anion Gap 15 H 5-14 MMOL/L Blood Urea Nitrogen 24 H 7-18 MG/DL Creatinine 0.96 0.60-1.30 MG/DL Estimat Glomerular Filtration Rate 58 BUN/Creatinine Ratio 25 Glucose Level 111 H 70-105 MG/DL Lactic Acid Level 1.47 0.50-2.00 MMOL/L Calcium Level 10.0 8.5-10.1 MG/DL Corrected Calcium 10.1 8.5-10.1 MG/DL Total Bilirubin 0.3 0.1-1.0 MG/DL Aspartate Amino Transf (AST/SGOT) 26 5-34 U/L Alanine Aminotransferase (ALT/SGPT) 32 0-55 U/L Alkaline Phosphatase 99 40-136 U/L Troponin I < 0.30 <0.30 NG/ML Pro-B-Type Natriuretic Peptide 115.3 H <75.0 PG/ML Total Protein 7.0 6.4-8.2 GM/DL Albumin 3.9 3.2-4.5 GM/DL My Orders Orders - SUMIT SHARMA DO Cbc With Automated Diff (04/19/19 11:20) Comprehensive Metabolic Panel (04/19/19 11:20) Blood Culture (04/19/19 11:20) Chest 1 View Ap/Pa Only (04/19/19 11:20) Ekg Tracing (04/19/19 11:20) O2 (04/19/19 11:20) Ed Iv/Invasive Line Start (04/19/19 11:20) Monitor-Rhythm Ecg Trace Only (04/19/19 11:20) Lactic Acid Analyzer (04/19/19 11:20) Troponin I Fs (04/19/19 11:22) Probnp Fs (04/19/19 11:22) Fibrin Degradation Products (04/19/19 12:01) Iohexol Injection (Omnipaque 350 Mg/Ml 1 (04/19/19 13:00) Received Contrast (Hold Metformin- Contr (04/19/19 13:00) Sodium Chloride Flush (Catheter Flush Sy (04/19/19 13:00) Ns (Ivpb) (Sodium Chloride 0.9% Ivpb Bag (04/19/19 13:00) Hydrocodone/Apap 10/325 Tablet (Lortab 1 (04/19/19 13:45) Albuterol/Ipra Inhalation Soln (Duoneb I (04/19/19 14:00) Svn Small Volume Nebulizer (04/19/19 13:51) Methylprednisolone Sod Succ (Solu-Medrol (04/19/19 14:00) Aspirin Chewable Tablet (Baby Aspirin Ch (04/19/19 14:00) Medications Given in ED Current Medications Medications Dose Ordered Sig/Mahamed Route Start Time Stop Time Status Last Admin Dose Admin Acetaminophen/ Hydrocodone Bitart 1 ea ONCE ONCE PO 04/19/19 13:45 04/19/19 13:46 DC 04/19/19 13:45 1 EA Albuterol/ Ipratropium 3 ml ONCE ONCE INH 04/19/19 14:00 04/19/19 14:01 DC 04/19/19 14:10 3 ML Aspirin 324 mg ONCE ONCE PO 04/19/19 14:00 04/19/19 14:01 DC 04/19/19 14:10 324 MG Methylprednisolone Sodium Succinate 125 mg ONCE ONCE IVP 04/19/19 14:00 04/19/19 14:01 DC 04/19/19 14:10 125 MG Vital Signs/I&O 04/19/19 04/19/19 11:12 11:31 Temp 36.5 Pulse 103 Resp 23 B/P (MAP) 142/67 (92) Pulse Ox 96 96 O2 Delivery Nasal Cannula Nasal Cannula O2 Flow Rate 6.00 FiO2 96 Capillary Refill : Progress Note : Progress Note @1320 - Patient is refusing the CTA chest. @1350 - patient informed of lab and imaging results. CP resolved. Respiratory status improved. Tachycardic after neb treatment. Advised the patient to be admitted considering oxygen level in the field was quite low and she is having intermittent chest discomfort. She states that her preferred facilities [place] because her loader helper sorting yard is there. The transfer line at [facility] was called at this time. They will get a transfer physician on the phone call back. @1420 - Dr. Arrington at [facility] accepts the transfer. ECG EKG : Comment @1120 - Sinus tachycardia, rate of 127, normal axis, no acute ischemic findings noted, no STEMI, reviewed and interpreted by myself Diagnostic Imaging Diagonstic Imaging: Xray Comments [facility], [place] NAME: ELIGIO JUSTICE [facility] REC#: [id number] PT STATUS: REG ER : 1950 PHYSICIAN: SUMIT SHARMA DO ADMIT DATE: 04/19/19/ER FS Signed Date of Exam:04/19/19 CHEST 1 VIEW AP/PA ONLY INDICATION: Shortness of breath, cough. COMPARISON: April 10, 2019. TECHNIQUE: Single radiograph of the chest dated April 19, 2019. FINDINGS: The cardiac silhouette is enlarged. Central pulmonary vascular congestion is present. Patchy bilateral pulmonary opacities are present, increased since the prior examination. No large-volume pleural effusion. No pneumothorax. Osseous structures appear stable. IMPRESSION: Developing bilateral patchy pulmonary opacities. This may relate to developing pulmonary edema given increasing pulmonary vascular congestion. Recommend clinical correlation and radiographic follow-up. Dictated by: Dictated on workstation # [id number] Dict: 04/19/19 1140 Trans: 04/19/19 1154 [id number] Interpreted by: SHYAM BLACKMAN MD Electronically signed by: SHYAM BLACKMAN MD 04/19/19 1154 Departure Impression Primary Impression: COPD with acute exacerbation Additional Impressions: Chest pain Hypoxia Disposition: XFER SHT-TRM HOSP Condition: Stable Transfer Transfer Reason: Patient preference Time Spoke to Accepting Phy: 14:[address] Arrington at [facility] accepts the patient transfer at this time. Transfer Time: 14:20 Transfer Facility: [facility] Method of Transfer: EMS Departure-Patient Inst. Referrals: AIDEN PATTERSON MD (PCP/Family) Primary Care Physician SUMIT SHARMA DO Apr 19, 2019 11:32
[2019-04-19 11:37] LABS: HEMATOCRIT 41 % (35-52); HEMOGLOBIN 13.7 G/DL (11.5-16.0); MEAN CORPUSCULAR HEMOGLOBIN 29 PG (25-34); MEAN CORPUSCULAR HGB CONC 33 G/DL (32-36); MEAN CORPUSCULAR VOLUME 87 FL (80-99)
[2019-04-19 11:38] LABS: BASOPHILS # (AUTO) 0.1 10^3/uL (0.0-0.1); BASOPHILS % (AUTO) 1 % (0-10); EOSINOPHILS # (AUTO) 0.2 10^3/uL (0.0-0.3); EOSINOPHILS % (AUTO) 1 % (0-10); LYMPHOCYTES # (AUTO) 3.1 X 10^3 (1.0-4.0); LYMPHOCYTES % (AUTO) 22 % (12-44); MEAN PLATELET VOLUME 9.2 FL (7.4-10.4); MONOCYTES % (AUTO) 8 % (0-12); NEUTROPHILS # (AUTO) 8.9 X 10^3 (1.8-7.8); NEUTROPHILS % (AUTO) 64 % (42-75); PLATELET COUNT 418 10^3/uL (130-400)
--- NOTE | 2019-04-19 11:44 | Diagnostic Imaging Report ---
INDICATION: Shortness of breath, cough. COMPARISON: April 10, 2019. TECHNIQUE: Single radiograph of the chest dated April 19, 2019. FINDINGS: The cardiac silhouette is enlarged. Central pulmonary vascular congestion is present. Patchy bilateral pulmonary opacities are present, increased since the prior examination. No large-volume pleural effusion. No pneumothorax. Osseous structures appear stable. IMPRESSION: Developing bilateral patchy pulmonary opacities. This may relate to developing pulmonary edema given increasing pulmonary vascular congestion. Recommend clinical correlation and radiographic follow-up. Dictated by: Dictated on workstation # [id number]
[2019-04-19 12:03] LABS: BUN/CREATININE RATIO 25; CARBON DIOXIDE 27 MMOL/L (21-32); CHLORIDE 93 MMOL/L (98-107); CREATININE SERUM 0.96 MG/DL (0.60-1.30); GFR ESTIMATED 58; GLUCOSE 111 MG/DL (70-105); POTASSIUM 4.1 MMOL/L (3.6-5.0); SODIUM 135 MMOL/L (135-145)
[2019-04-19 12:04] LABS: ALANINE AMINOTRANSFERASE 32 U/L (0-55); ALBUMIN 3.9 GM/DL (3.2-4.5); ALKALINE PHOSPHATASE 99 U/L (40-136); BILIRUBIN,TOTAL 0.3 MG/DL (0.1-1.0)
[2019-04-19] MEDS ORDERED: CATHETER FLUSH 10 ML SYR IV PRN (13:00)
[2019-04-19] MEDS ORDERED: NS 100 ML (IVPB) BAG IV ONE (13:00)
[2019-04-19] MEDS ORDERED: HOLD METFORMIN - RECEIVED CONTRAST 20 ML VIAL IV SCH (13:00)
[2019-04-19] MEDS ORDERED: IOHEXOL 350 MG/ML 150 ML (OMNIPAQUE 350) VIAL IV ONE (13:00)
--- NOTE | 2019-04-19 13:21 | NUR ---
PT REFUSED CTA OF CHEST BECAUSE SHE STATES SHE DOES NOT WANT THAT DYE IN HER BODY. DR. SHARMA WAS NOTIFED AND THE PTS GRANDDAUGHTER WAS NOTIFIED AND SHE TALKED TO THE PT BUT SHE STILL REFUSED. BENEFITS AND RISKS OF REFUSING THE CTA WERE EXPLAINED TO THE PT INCLUDING THE RISK OF A PULMOMARY EMBOLI.
[2019-04-19] MEDS ORDERED: HYDROcodone/APAP 10 MG/325 MG (LORTAB) TAB PO ONE (13:45)
[2019-04-19] MEDS ORDERED: methylPREDNISolone 125 MG (Solu-MEDROL) VIAL IVP ONE (14:00)
[2019-04-19] MEDS ORDERED: ASPIRIN 81 MG CHEW (CHILDREN'S ASA) PO ONE (14:00)
[2019-04-19] MEDS ORDERED: RT-ALBUTEROL/IPRATROPIUM 3 ML (DUONEB) VIAL INH ONE (14:00)
--- NOTE | 2019-04-19 14:31 | NUR ---
Eric with [facility] called at this time with room number 3004. Nurse will be Ramírez [phone].
[2019-04-19 14:49] VITALS: BP 131/90
== END 2019-04-19 15:16 | disposition short-term general hospital (02) ==
LOC: EDUNIT# 11:11 → ER FS 11:11
DX: J44.1 Chronic obstructive pulmonary disease with (acute) exacerbation (principal); R07.9 Chest pain, unspecified; R09.02 Hypoxemia; I25.2 Old myocardial infarction; E03.9 Hypothyroidism, unspecified; Z88.0 Allergy status to penicillin; Z88.1 Allergy status to other antibiotic agents; Z88.5 Allergy status to narcotic agent; Z79.51 Long term (current) use of inhaled steroids; Z79.52 Long term (current) use of systemic steroids; Z98.51 Tubal ligation status
CPT/HCPCS: 36415; 51702; 71045; 80053; 83605; 83880; 84484; 85025; 85379; 87040; 93005; 93041